=== PATIENT | male | born 1980 | race Caucasian/White ===

== ENCOUNTER 2025-04-10 06:19 | Inpatient (IN) ==
[2025-04-10 06:30] VITALS: BMI 25.0
[2025-04-10] MEDS: CATAPRES TAB 0.1 MG PO ONE (06:41)
--- NOTE | 2025-04-10 06:47 | EKG ---
Test Reason : right sided tingling Blood Pressure : */* mmHG Vent. Rate : 80 BPM Atrial Rate : 80 BPM P-R Int : 144 ms QRS Dur : 72 ms QT Int : 376 ms P-R-T Axes : 51 70 70 degrees QTc Int : 433 ms Normal sinus rhythm Normal ECG No previous ECGs available Confirmed by Per Ryan MD ([id number]) on 04/10/2025 7:03:09 AM Referred By: Confirmed By: Per Ryan MD
--- NOTE | 2025-04-10 06:48 | DR.EXTPAIN ---
HPI Time seen Time Seen by Provider: 04/10/25 06:47 PCP Primary Care Physician: [facility] Complaint/Symptoms Chief Complaint Doctor Comments: Patient stated about 10:00 last night he developed some right-sided face numbness and also little bit of left hand numbness. He denied any chest pain shortness of breath or anything like that he said he does have a history of borderline hypertension. When he got here his blood pressure was elevated to about 190/110 we gave him some clonidine 0.1 mg orally and we got him set to get a CT scan of his brain and some other labs are drawn. Chief Complaint:: Right side of face going numb, arms tingling Self Treatment fo Chief Complaint: Motrin about 1hour ago COVID-19 Coronavirus risk:travel/contact w/high risk person: No Has patient experienced Coronavirus symptoms: No Source History Provided: Patient Timing Onset of Chief Complaint: 04/09/25 PMH PMH Past Medical History: Yes Past Medical History Comment: borderline hypertension Past Surgical History: Yes Surgical History: Cholecystectomy Family History History of Family Medical Conditions: Yes Family Medical History: Hypertension Social History Does patient currently use any type of tobacco product: No Have you used tobacco products in the last 12 months: No Type of Tobacco Use: None Does any household member use tobacco: No Alcohol Use: DAILY Do you use any recreational Drugs:: No Lives With: Spouse Lives Where: Home Travel Risk Coronavirus risk:travel/contact w/high risk person: No Has patient experienced Coronavirus symptoms: No Infectious screening Have you traveled outside the country in the last 6 months?: No Isolation: Standard ROS Review of Systems Constitutional: Other (Right side of face numbness along with right arm and hand numbness. No pain patient is able to move right side extremities) Eyes: No Symptoms Reported ENTM: No Symptoms Reported Respiratoy: No Symptoms Reported Cardiovascular: No Symptoms Reported Gastrointestinal/Abdominal: No Symptoms Reported Genitourinary: No Symptoms Reported Neurological: Numbness (r face and r arm) Musculoskeletal: No Symptoms Reported Integumentary: No Symptoms Reported Hematologic/Lymphatic: No Symptoms Reported Endocrine: No Symptoms Reported Psychiatric: No Symptoms Reported PE Vital Signs Vitals: Vital Signs Temperature 98.6 F Pulse Rate 92 Pulse Rate 84 Pulse Rate 84 Pulse Rate 79 Pulse Rate 77 Pulse Rate 77 Pulse Rate 77 Pulse Rate 84 Pulse Rate 80 Pulse Rate 78 Pulse Rate 78 Respiratory Rate 13 Respiratory Rate 12 Respiratory Rate 12 Respiratory Rate 10 Respiratory Rate 13 Respiratory Rate 12 Respiratory Rate 20 Respiratory Rate 14 Respiratory Rate 22 Respiratory Rate 22 Blood Pressure 153/91 Blood Pressure 176/104 Blood Pressure 169/96 Blood Pressure 169/96 Blood Pressure 169/96 Blood Pressure 186/105 Blood Pressure 212/101 Blood Pressure 187/115 Blood Pressure 194/109 Blood Pressure 204/110 Blood Pressure 193/110 O2 Sat by Pulse Oximetry 98 O2 Sat by Pulse Oximetry 99 O2 Sat by Pulse Oximetry 99 O2 Sat by Pulse Oximetry 98 O2 Sat by Pulse Oximetry 98 O2 Sat by Pulse Oximetry 98 O2 Sat by Pulse Oximetry 98 O2 Sat by Pulse Oximetry 97 O2 Sat by Pulse Oximetry 98 O2 Sat by Pulse Oximetry 97 O2 Sat by Pulse Oximetry 96 General Limitations: No Limitations and Physical Limitation (none) General Appearance: In No Apparent Distress Head Head Exam: Normal Inspection, Atraumatic and Normocephalic Eyes Eye exam: Normal Appearance, PERRL and EOMI ENT ENT Exam: Other (r side of face swelling) Neck Neck Exam: Normal Inspection, Full ROM and Trachea Midline Chest Chest Inspection: Normal Inspection and Symmetric Chest Wall Rise Respiratory Respiratory Exam: Normal Lung Sounds Bilat Cardiovascular Cardiovascular Exam: Regular Rate and Normal Rhythm Upper Extremities Shoulder Exam: Normal Inspection Arm Exam: Normal Inspection Elbow Exam: Normal Inspection Forearm Exam: Normal Inspection Hand Exam: Normal Inspection Lower Extremities Hip/Pelvis Exam: Normal Inspection Upper Leg Exam: Normal Inspection Knee Exam: Normal Inspection Lower Leg Exam: Normal Inspection Ankle Exam: Normal Inspection Foot/Toe Exam: Normal Inspection Gait Exam: Observed and Normal Back Back Exam: Normal Inspection Neurological Neurological Exam: Alert, Oriented X3 and CN II-XII Intact Psychiatric Psychiatric Exam: Normal Affect Skin Skin Exam: Warm, Dry and Intact MDM Differential Diagnosis Differential Diagnosis: Other (cva,tia,bells palsy,dental abscess,malignant HTN,electrolyte abnormality.) COURSE Treatment Treatment: Patient remained stable during the ER evaluation. We did do clonidine 0.1 mg orally for blood pressure but it did not come down significantly so we gave him hydralazine 10 mg IV and his blood pressure came down from about 185/110 to 157/90. The patient had a workup done for maybe maybe CVA TIA he has CT scan of the brain that was negative for any acute bleed. The rest of his labs were normal EKG was normal chest x-ray showed no intra thoracic abnormality. Patient at the end of this treatment program was asked to assist right facial numbness is not any better improved he said no seem that got little bit worse and he also stated his right arm was also little bit more than he was able to move all the extremities and seemed to have equal strength on both sides I did look in his mild he did not appear to have any dental abscess or any other problem. This patient was told we were signout to the oncoming physician for further evaluation and treatment. We do not have capability of getting an MRI of his brain here today to further assess his numbness of his right side of face or right arm. ROR Labs Reviewed Laboratory Results Reviewed?: Yes 04/10/25 06:50 04/10/25 06:50 Laboratory: WBC 7.8 X10^3/uL (3.6-10.0) 04/10/25 06:50 RBC 5.49 X10^6/uL (4.7-6.0) 04/10/25 06:50 Hgb 16.2 g/dL (13.5-18.0) 04/10/25 06:50 Hct 45.7 % (42.0-54.0) 04/10/25 06:50 MCV 83.3 fL (80.0-100.0) 04/10/25 06:50 MCH 29.6 pg (27.0-34.0) 04/10/25 06:50 MCHC 35.5 g/dL (33.0-35.0) H 04/10/25 06:50 RDW 14.1 % (11.6-16.5) 04/10/25 06:50 Plt Count 267 X10^3/uL (150.0-450.0) 04/10/25 06:50 MPV 7.5 fL (7.4-11.0) 04/10/25 06:50 Neut % (Auto) 56.8 % (42.0-75.0) 04/10/25 06:50 Lymph % (Auto) 32.4 % (21.0-51.0) 04/10/25 06:50 [place] % (Auto) 6.6 % (0.0-13.0) 04/10/25 06:50 Eos % (Auto) 3.4 % (0.9-2.9) H 04/10/25 06:50 Baso % (Auto) 0.8 % (0.2-1.0) 04/10/25 06:50 Neut # (Auto) 4.4 x10^3/uL (2.2-4.8) 04/10/25 06:50 Lymph # (Auto) 2.5 X10^3/uL (1.3-2.9) 04/10/25 06:50 [place] # (Auto) 0.5 x10^3/uL (0.3-0.8) 04/10/25 06:50 Eos # (Auto) 0.3 x10^3/uL (0.0-0.2) H 04/10/25 06:50 Baso # (Auto) 0.1 X10^3/uL (0.0-0.1) 04/10/25 06:50 Absolute Nucleated RBC 0.1 /100WBC 04/10/25 06:50 PT 13.1 SECONDS (11.8-14.3) 04/10/25 06:50 INR Target Range - 04/10/25 06:50 INR 0.98 (0.8-1.3) 04/10/25 06:50 APTT 25.4 SECONDS (22.9-36.5) 04/10/25 06:50 PTT Comment - 04/10/25 06:50 Sodium 140 mmol/L (136-145) 04/10/25 06:50 Corrected Sodium TNP 04/10/25 06:50 Potassium 3.8 mmol/L (3.5-5.1) 04/10/25 06:50 Chloride 101 mmol/L (98-107) 04/10/25 06:50 Carbon Dioxide 29.5 mmol/L (21-32) 04/10/25 06:50 BUN 13 mg/dL (7-18) 04/10/25 06:50 Creatinine 1.17 mg/dL (0.70-1.30) 04/10/25 06:50 Est GFR (MDRD) Af Amer > 60 (>60) 04/10/25 06:50 Est GFR (MDRD) Non-Af > 60 (>60) 04/10/25 06:50 Glucose 104 mg/dL (65-99) H 04/10/25 06:50 Calcium 9.6 mg/dL (8.5-10.1) 04/10/25 06:50 Corrected Calcium TNP 04/10/25 06:50 Total Bilirubin 0.40 mg/dL (0.2-1.0) 04/10/25 06:50 AST 29 Units/L (15-37) 04/10/25 06:50 ALT 69 Units/L (12-78) 04/10/25 06:50 Alkaline Phosphatase 96 Units/L (46-116) 04/10/25 06:50 Creatine Kinase 175 Units/L (39-308) 04/10/25 06:50 Troponin I High Sens 7.2 ng/L (4.0-60.0) 04/10/25 06:50 Total Protein 8.1 g/dL (6.4-8.2) 04/10/25 06:50 Albumin 4.4 g/dL (3.4-5.0) 04/10/25 06:50 Globulin 3.7 g/dL (2.5-4.5) 04/10/25 06:50 Albumin/Globulin Ratio 1.2 Ratio (1.1-2.1) 04/10/25 06:50 Opioid Opioid Risk Tool Age (Abisai box if 16-45): No Total: 0 Total Score Risk Category: Low Risk Copyright: Luke CHONG predicting aberrant behaviors Discharge Plan Discharge Plan Patient Disposition: 01 HOME, SELF-CARE Condition: Stable Prescriptions: No Action [facility] Concerns: Post Hospitalization: new medications and changes needed to prevent readmission or further decline. Pt educated and given instructions on all concerns. Plan of Treatment: Continue with present treatment and follow up plan. Pt is to keep follow up appointment as instructed and take medications as ordered. Follow ups/Referrals Follow ups/Referrals: NFD,None [Primary Care Provider] - 3 days Instructions Stand Alone Forms: Find Help Web Site, Post Hospital Follow Up Care Print Language: PORTUGUESE
[2025-04-10 06:57] LABS: BASOPHILS # (AUTO) 0.1 X10^3/uL (0.0-0.1); BASOPHILS % (AUTO) 0.8 % (0.2-1.0); EOSINOPHILS # (AUTO) 0.3 x10^3/uL (0.0-0.2); EOSINOPHILS % (AUTO) 3.4 % (0.9-2.9); HEMATOCRIT 45.7 % (42.0-54.0); HEMOGLOBIN 16.2 g/dL (13.5-18.0); LYMPHOCYTES # (AUTO) 2.5 X10^3/uL (1.3-2.9); LYMPHOCYTES % (AUTO) 32.4 % (21.0-51.0); MEAN CORPUSCULAR HEMOGLOBIN 29.6 pg (27.0-34.0); MEAN CORPUSCULAR HGB CONC 35.5 g/dL (33.0-35.0); MEAN CORPUSCULAR VOLUME 83.3 fL (80.0-100.0); MEAN PLATELET VOLUME 7.5 fL (7.4-11.0); MONOCYTES # (AUTO) 0.5 x10^3/uL (0.3-0.8); MONOCYTES % (AUTO) 6.6 % (0.0-13.0); NEUTROPHILS # (AUTO) 4.4 x10^3/uL (2.2-4.8); NEUTROPHILS % (AUTO) 56.8 % (42.0-75.0); PLATELET COUNT 267 X10^3/uL (150.0-450.0); RED BLOOD COUNT 5.49 X10^6/uL (4.7-6.0); RED CELL DISTRIBUTION WIDTH 14.1 % (11.6-16.5); WHITE BLOOD COUNT 7.8 X10^3/uL (3.6-10.0)
[2025-04-10 07:04] LABS: INR 0.98 (0.8-1.3)
[2025-04-10 07:11] LABS: ALANINE AMINOTRANSFERASE 69 Units/L (12-78); ALBUMIN 4.4 g/dL (3.4-5.0); ALKALINE PHOSPHATASE 96 Units/L (46-116); ASPARTATE AMINO TRANSFERASE 29 Units/L (15-37); BLOOD UREA NITROGEN 13 mg/dL (7-18); CALCIUM 9.6 mg/dL (8.5-10.1); CARBON DIOXIDE 29.5 mmol/L (21-32); CHLORIDE 101 mmol/L (98-107); CREATINE KINASE 175 Units/L (39-308); CREATININE 1.17 mg/dL (0.70-1.30); GLUCOSE 104 mg/dL (65-99); POTASSIUM 3.8 mmol/L (3.5-5.1); SODIUM 140 mmol/L (136-145); TOTAL PROTEIN 8.1 g/dL (6.4-8.2); eGFR NON BLACK RACES > 60 (>60)
[2025-04-10] MEDS: APRESOLINE INJ 20 MG VIAL IVP ONE (07:15)
--- NOTE | 2025-04-10 07:20 | CT ---
EXAM: CT HEAD WITHOUT CONTRAST HISTORY: Right side of face going numb, arms tingling; COMPARISON: None. TECHNIQUE: Axial CT images were obtained through the brain without contrast. All CT scans at this facility use dose modulation, iterative reconstruction, and/or weight based dosing when appropriate to reduce radiation dose to as low as reasonably achievable. FINDINGS: No acute intracranial hemorrhage or extra-axial fluid collection. No mass effect or midline shift. Normal ventricles and CSF space configuration. No hydrocephalus. Parra-white differentiation is preserved. Intact calvarium. Visualized paranasal sinuses and mastoid air cells are well aerated. IMPRESSION: No acute intracranial findings. THIS IS AN ELECTRONICALLY VERIFIED FINAL REPORT 04/10/2025 7:14 AM - Electronically signed by Nabil Torres MD
--- NOTE | 2025-04-10 07:43 | RAD ---
EXAM: CHEST HISTORY: Right side of face going numb, arms tingling; COMPARISON: None. TECHNIQUE: Front al view of the chest was submitted for interpretation. FINDINGS: The cardiomediastinal silhouette is within normal limits. Lungs show no focal consolidation, pneumothorax, or pleural fluid. IMPRESSION: No acute cardiopulmonary process. THIS IS AN ELECTRONICALLY VERIFIED FINAL REPORT 04/10/2025 7:40 AM - Electronically signed by Nabil Putnam MD
--- NOTE | 2025-04-10 09:04 | TELESTROKE ---
[facility] Consult Date of Consult Date of Exam: 04/10/25 Time of Arrival to the ED: 09:04 Allergies Allergies Allergy/AdvReac Type Severity Reaction Status Date / Time No Known Allergies Allergy Verified 04/10/25 06:45 Vital Signs Vital Signs: Temp Pulse Resp BP Pulse Ox O2 Del Method 04/10/25 09:00 153/104 04/10/25 08:59 82 10 L 04/10/25 08:47 88 13 99 04/10/25 08:45 160/98 04/10/25 08:44 85 13 99 04/10/25 08:38 80 12 98 04/10/25 08:36 159/93 04/10/25 08:15 87 12 98 04/10/25 08:15 156/97 04/10/25 08:00 92 H 13 98 04/10/25 08:00 153/91 04/10/25 07:45 176/104 04/10/25 07:30 169/96 04/10/25 07:30 169/96 04/10/25 07:30 169/96 04/10/25 07:30 84 12 99 04/10/25 07:30 84 12 99 04/10/25 07:15 186/105 04/10/25 07:15 79 10 L 98 04/10/25 07:08 212/101 04/10/25 07:08 77 13 98 04/10/25 07:06 77 12 98 04/10/25 07:05 77 98 04/10/25 06:56 187/115 04/10/25 06:56 84 20 97 04/10/25 06:45 194/109 04/10/25 06:45 80 14 98 04/10/25 06:37 204/110 04/10/25 06:37 78 97 04/10/25 06:22 98.6 F 78 22 193/110 96 Room Air 04/10/25 06:21 22 History of Present Illness History of Present Illness: [facility] Tele[facility]urology Consult Services Stat Consult Patient Name:Harsha Christopher Date of :1980 Identification Number: Date of Service:04/10/2025 08:32:03 Diagnosis:I63.81 - 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 He is outside the time window for thrombolytics. No associated bulbar or focal motor deficits. This is in the context of uncontrolled htn with sbp over 190. Differential includes hypertensive urgency vs acute pure sensory stroke. Would recommend MRI brain to evaluate. Recommendations: Our recommendations are outlined below. Laboratory Studies :Lipid panelI orderedHemoglobin A1c Nursing Recommendations :IV Fluids, avoid dextrose containing fluids, Maintain euglycemia Neuro checks q4 hrs x 24 hrs and then per shift Head of bed 30 degrees Continue with Telemetry Consultations :Recommend Speech therapy if failed dysphagia screen Physical therapy/Occupational therapy - Metrics: Dispatch Time: 04/10/2025 08:32:03 Callback Response Time: 04/10/2025 08:32:34 Primary Provider Notified of Diagnostic Impression and Management Plan on: 04/10/2025 09:01:14 CT HEAD: I personally reviewed all the CT images that were available to me and it showed:no hemorrhage. Imagingreviewed Labsreviewed Chief Complaint: R sided sensory changes History of Present Illness:Patient is a 44 year old Male. Pt reports that last night pt started having numbness on the R side of the face. After waking up it was worse. It had travelled to the entire R side of the face and then to the R upper and lower extremities. He can't distinguish temp on the R side of the face either. This has never happened before. No associated focal motor or bulbar deficits. Pt does have HTN but it is currently being observed, he is not taking any daily medications. Pt's bp on arrival has been persistently above 190 systolic. Past Medical History: Hypertension Covid-19 There is no history of Diabetes Mellitus There is no history of Hyperlipidemia There is no history of Atrial Fibrillation There is no history of Coronary Artery Disease There is no history of Stroke There is no history of Seizures There is no history of Migraine Headaches There is no history of Dementia/MCI Medications: No Anticoagulant use No Antiplatelet use Reviewed EMR for current medications Allergies: NKDA Social History: Current Employee : drinks alcohol daily Smoking: No Alcohol Use: Yes Drug Use: No Family History: There is no family history of premature cerebrovascular disease pertinent to this consultation ROS : 14 Points Review of Systems was performed and was negative except mentioned in HPI. Past Surgical History: There Is No Surgical History Contributory To Todays Visit Examination: BP(193/110),Pulse(78),Blood Glucose(104) 1A: Level of Consciousness - Alert; keenly responsive+ 0 1B: Ask Month and Age - Both Questions Right+ 0 1C: Blink Eyes & Squeeze Hands - Performs Both Tasks+ 0 2: Test Horizontal Extraocular Movements - Normal+ 0 3: Test Visual Cuellar - No Visual Loss+ 0 4: Test Facial Palsy (Use Grimace if Obtunded) - Normal symmetry+ 0 5A: Test Left Arm Motor Drift - No Drift for 10 Seconds+ 0 5B: Test Right Arm Motor Drift - No Drift for 10 Seconds+ 0 6A: Test Left Leg Motor Drift - No Drift for 5 Seconds+ 0 6B: Test Right Leg Motor Drift - No Drift for 5 Seconds+ 0 7: Test Limb Ataxia (FNF/Heel-Riley) - No Ataxia+ 0 8: Test Sensation - Mild-Moderate Loss: Less Sharp/More Dull+ 1 9: Test Language/Aphasia - Normal; No aphasia+ 0 10: Test Dysarthria - Normal+ 0 11: Test Extinction/Inattention - No abnormality+ 0 NIHSS Score:1 Spoke with : This consult was conducted in real time using interactive audio and video technology. Patient was informed of the technology being used for this visit and agreed to proceed. Patient located in hospital and provider located at home/office setting. Patient is being evaluated for possible acute neurologic impairment and high probability of imminent or life - threatening deterioration.I spent total of 35 minutes providing care to this patient, including time for face to face visit via telemedicine, review of medical records, imaging studies and discussion of findings with providers, the patient and / or family. Dr Brooke Velasquezed [facility] For Inpatient follow-up with [facility] physician please call [facility] at . As we are not an outpatient service for any post hospital discharge needs please contact the hospital for assistance. If you have any questions for the [facility] physicians or need to reconsult for clinical or diagnostic changes please contact us via [facility] at . Medical Decision Making 04/10/25 06:50 04/10/25 06:50 Labs: Laboratory Results - last 24 hr 04/10/25 06:50 WBC 7.8 RBC 5.49 Hgb 16.2 Hct 45.7 MCV 83.3 MCH 29.6 MCHC 35.5 H RDW 14.1 Plt Count 267 MPV 7.5 Neut % (Auto) 56.8 Lymph % (Auto) 32.4 [place] % (Auto) 6.6 Eos % (Auto) 3.4 H Baso % (Auto) 0.8 Neut # (Auto) 4.4 Lymph # (Auto) 2.5 [place] # (Auto) 0.5 Eos # (Auto) 0.3 H Baso # (Auto) 0.1 Absolute Nucleated RBC 0.1 PT 13.1 INR Target Range - INR 0.98 APTT 25.4 PTT Comment - Sodium 140 Corrected Sodium TNP Potassium 3.8 Chloride 101 Carbon Dioxide 29.5 BUN 13 Creatinine 1.17 Est GFR (MDRD) Af Amer > 60 Est GFR (MDRD) Non-Af > 60 Glucose 104 H Calcium 9.6 Corrected Calcium TNP Total Bilirubin 0.40 AST 29 ALT 69 Alkaline Phosphatase 96 Creatine Kinase 175 Troponin I High Sens 7.2 Total Protein 8.1 Albumin 4.4 Globulin 3.7 Albumin/Globulin Ratio 1.2
[2025-04-10] MEDS ORDERED: ECOTRIN TAB 325 MG PO ONE (09:37)
[2025-04-10] MEDS: PLAVIX PO ONE (09:42)
[2025-04-10] MEDS: ASPIRIN PO SCH (09:43)
--- NOTE | 2025-04-10 09:55 | DR.EXTPAIN ---
HPI Time seen Time Seen by Provider: 04/10/25 06:47 PCP Primary Care Physician: [facility] Complaint/Symptoms Chief Complaint:: Right side of face going numb, arms tingling Self Treatment fo Chief Complaint: Motrin about 1hour ago COVID-19 Coronavirus risk:travel/contact w/high risk person: No Has patient experienced Coronavirus symptoms: No Source History Provided: Patient Timing Onset of Chief Complaint: 04/09/25 PMH PMH Past Medical History: Yes Past Medical History Comment: borderline hypertension Past Surgical History: Yes Surgical History: Cholecystectomy Family History History of Family Medical Conditions: Yes Family Medical History: Hypertension Social History Does patient currently use any type of tobacco product: No Have you used tobacco products in the last 12 months: No Type of Tobacco Use: None Does any household member use tobacco: No Alcohol Use: DAILY Do you use any recreational Drugs:: No Lives With: Spouse Lives Where: Home Travel Risk Coronavirus risk:travel/contact w/high risk person: No Has patient experienced Coronavirus symptoms: No Infectious screening Have you traveled outside the country in the last 6 months?: No Isolation: Standard PE Vital Signs Vitals: Vital Signs Temperature 98.6 F Pulse Rate 82 Pulse Rate 88 Pulse Rate 85 Pulse Rate 80 Pulse Rate 87 Pulse Rate 92 Pulse Rate 84 Pulse Rate 84 Pulse Rate 79 Pulse Rate 77 Pulse Rate 77 Pulse Rate 77 Pulse Rate 84 Pulse Rate 80 Pulse Rate 78 Pulse Rate 78 Respiratory Rate 10 Respiratory Rate 13 Respiratory Rate 13 Respiratory Rate 12 Respiratory Rate 12 Respiratory Rate 13 Respiratory Rate 12 Respiratory Rate 12 Respiratory Rate 10 Respiratory Rate 13 Respiratory Rate 12 Respiratory Rate 20 Respiratory Rate 14 Respiratory Rate 22 Respiratory Rate 22 Blood Pressure 153/104 Blood Pressure 160/98 Blood Pressure 159/93 Blood Pressure 156/97 Blood Pressure 153/91 Blood Pressure 176/104 Blood Pressure 169/96 Blood Pressure 169/96 Blood Pressure 169/96 Blood Pressure 186/105 Blood Pressure 212/101 Blood Pressure 187/115 Blood Pressure 194/109 Blood Pressure 204/110 Blood Pressure 193/110 O2 Sat by Pulse Oximetry 99 O2 Sat by Pulse Oximetry 99 O2 Sat by Pulse Oximetry 98 O2 Sat by Pulse Oximetry 98 O2 Sat by Pulse Oximetry 98 O2 Sat by Pulse Oximetry 99 O2 Sat by Pulse Oximetry 99 O2 Sat by Pulse Oximetry 98 O2 Sat by Pulse Oximetry 98 O2 Sat by Pulse Oximetry 98 O2 Sat by Pulse Oximetry 98 O2 Sat by Pulse Oximetry 97 O2 Sat by Pulse Oximetry 98 O2 Sat by Pulse Oximetry 97 O2 Sat by Pulse Oximetry 96 COURSE Treatment Treatment: Patient sign out to service by Dr Alatorre at 08:00am. Patient had [facility] consult. Patient is admitted to hospital for further management. Consultation Consultation Comments: Discussed patient with Dr. PEREIRA. She will admit patient. Education/Counseling Education/Counseling: Patient and Family ROR Labs Reviewed Laboratory Results Reviewed?: Yes 04/10/25 06:50 04/10/25 06:50 Laboratory: WBC 7.8 X10^3/uL (3.6-10.0) 04/10/25 06:50 RBC 5.49 X10^6/uL (4.7-6.0) 04/10/25 06:50 Hgb 16.2 g/dL (13.5-18.0) 04/10/25 06:50 Hct 45.7 % (42.0-54.0) 04/10/25 06:50 MCV 83.3 fL (80.0-100.0) 04/10/25 06:50 MCH 29.6 pg (27.0-34.0) 04/10/25 06:50 MCHC 35.5 g/dL (33.0-35.0) H 04/10/25 06:50 RDW 14.1 % (11.6-16.5) 04/10/25 06:50 Plt Count 267 X10^3/uL (150.0-450.0) 04/10/25 06:50 MPV 7.5 fL (7.4-11.0) 04/10/25 06:50 Neut % (Auto) 56.8 % (42.0-75.0) 04/10/25 06:50 Lymph % (Auto) 32.4 % (21.0-51.0) 04/10/25 06:50 [place] % (Auto) 6.6 % (0.0-13.0) 04/10/25 06:50 Eos % (Auto) 3.4 % (0.9-2.9) H 04/10/25 06:50 Baso % (Auto) 0.8 % (0.2-1.0) 04/10/25 06:50 Neut # (Auto) 4.4 x10^3/uL (2.2-4.8) 04/10/25 06:50 Lymph # (Auto) 2.5 X10^3/uL (1.3-2.9) 04/10/25 06:50 [place] # (Auto) 0.5 x10^3/uL (0.3-0.8) 04/10/25 06:50 Eos # (Auto) 0.3 x10^3/uL (0.0-0.2) H 04/10/25 06:50 Baso # (Auto) 0.1 X10^3/uL (0.0-0.1) 04/10/25 06:50 Absolute Nucleated RBC 0.1 /100WBC 04/10/25 06:50 PT 13.1 SECONDS (11.8-14.3) 04/10/25 06:50 INR Target Range - 04/10/25 06:50 INR 0.98 (0.8-1.3) 04/10/25 06:50 APTT 25.4 SECONDS (22.9-36.5) 04/10/25 06:50 PTT Comment - 04/10/25 06:50 Sodium 140 mmol/L (136-145) 04/10/25 06:50 Corrected Sodium TNP 04/10/25 06:50 Potassium 3.8 mmol/L (3.5-5.1) 04/10/25 06:50 Chloride 101 mmol/L (98-107) 04/10/25 06:50 Carbon Dioxide 29.5 mmol/L (21-32) 04/10/25 06:50 BUN 13 mg/dL (7-18) 04/10/25 06:50 Creatinine 1.17 mg/dL (0.70-1.30) 04/10/25 06:50 Est GFR (MDRD) Af Amer > 60 (>60) 04/10/25 06:50 Est GFR (MDRD) Non-Af > 60 (>60) 04/10/25 06:50 Glucose 104 mg/dL (65-99) H 04/10/25 06:50 Calcium 9.6 mg/dL (8.5-10.1) 04/10/25 06:50 Corrected Calcium TNP 04/10/25 06:50 Total Bilirubin 0.40 mg/dL (0.2-1.0) 04/10/25 06:50 AST 29 Units/L (15-37) 04/10/25 06:50 ALT 69 Units/L (12-78) 04/10/25 06:50 Alkaline Phosphatase 96 Units/L (46-116) 04/10/25 06:50 Creatine Kinase 175 Units/L (39-308) 04/10/25 06:50 Troponin I High Sens 7.2 ng/L (4.0-60.0) 04/10/25 06:50 Total Protein 8.1 g/dL (6.4-8.2) 04/10/25 06:50 Albumin 4.4 g/dL (3.4-5.0) 04/10/25 06:50 Globulin 3.7 g/dL (2.5-4.5) 04/10/25 06:50 Albumin/Globulin Ratio 1.2 Ratio (1.1-2.1) 04/10/25 06:50 XRAY XRAY Interpreted by: Radiologist Opioid Opioid Risk Tool Age (Abisai box if 16-45): No Total: 0 Total Score Risk Category: Low Risk Copyright: Luke CHONG predicting aberrant behaviors Discharge Plan Diagnosis Discharge Problem: Malignant essential hypertension, Right facial numbness, Right arm numbness Discharge Plan Patient Disposition: ADMITTED INPATIENT Condition: Stable Orders to Discharge Patient Discharge Orders: Transfer (Routine); Ordered 04/10/25 Ordered By: HEMANT WOO
[2025-04-10] MEDS: CATAPRES TAB 0.1 MG ONE (10:09)
[2025-04-10] MEDS: ASPIRIN ONE (10:09)
[2025-04-10] MEDS: APRESOLINE INJ 20 MG VIAL ONE (10:09)
[2025-04-10] MEDS: PLAVIX ONE (10:09)
[2025-04-10] MEDS ORDERED: ATIVAN INJ 2 MG VIAL IVP PRN (11:04)
[2025-04-10] MEDS: ZESTRIL TAB 10 MG PO SCH (11:10)
--- NOTE | 2025-04-10 11:13 | DR.H&P ---
H&P History & Physical for Day of: H&P Date: 04/10/25 Chief Complaint Chief Complaint: right sided numbness and tingling History of Present Illness History of Present Illness: Mr. Christopher is a 44-year-old male with a past medical history of hypertension, alcohol use presented with right-sided facial numbness and tingling along with right arm and right foot numbness. He states he noticed his symptoms last night which progressively got worse so he decided to come to the ER. Initial workup included a CT brain which was negative, labs were within range. Patient's blood pressure on admission was 190/110. He was given clonidine and hydralazine. Chest x-ray was normal. Patient did not have any motor deficit on the right side but was feeling numbness and tingling. Telemetry neuroconsult was done and they recommended observation along with MRI brain. Patient was given aspirin and Plavix. He was admitted for further evaluation. He does not take any medications for high blood pressure. He does not check his blood pressure. Denies having history of diabetes or CAD. He does drink at least 6 beers daily for years. Denies any slurred speech, trouble swallowing or any limitation of range of motion. Denies chest pain or shortness of breath. Labs/imaging reviewed: - WBC 7.8 hemoglobin 16 potassium 3.8 creatinine 1.17 - Chest x-ray no acute changes - CT brain: No acute abnormality Plan: Admit to [facility] with telemetry, neurochecks. Will add lisinopril 10 mg daily. Hydralazine IV as needed. Monitor blood pressure. Replace electrolytes as per protocol. Trend cardiac enzymes, check A1c and lipid panel. Continue aspirin and Plavix. MRI brain ordered. Will add Ativan as needed for agitation if needed. Monitor a.m. labs and imaging. Time spent for clinical assessment, reviewing labs and imaging, physical exam, documentation and decision making greater than 45 minutes. Past Surgical History Surgical History: Cholecystectomy Family History Family Medical History: Hypertension Social History Does patient currently use any type of tobacco product: No Have you used tobacco products in the last 12 months: No Type of Tobacco Use: None Does any household member use tobacco: No Alcohol Use: DAILY Medications Home Medications: Home Medications Medication Instructions Recorded Confirmed Type NK 04/10/25 04/10/25 History Allergies Allergies Allergy/AdvReac Type Severity Reaction Status Date / Time No Known Allergies Allergy Verified 04/10/25 06:45 Labs 04/10/25 06:50 04/10/25 06:50 Labs: Laboratory WBC 7.8 X10^3/uL (3.6-10.0) 04/10/25 06:50 RBC 5.49 X10^6/uL (4.7-6.0) 04/10/25 06:50 Hgb 16.2 g/dL (13.5-18.0) 04/10/25 06:50 Hct 45.7 % (42.0-54.0) 04/10/25 06:50 MCV 83.3 fL (80.0-100.0) 04/10/25 06:50 MCH 29.6 pg (27.0-34.0) 04/10/25 06:50 MCHC 35.5 g/dL (33.0-35.0) H 04/10/25 06:50 RDW 14.1 % (11.6-16.5) 04/10/25 06:50 Plt Count 267 X10^3/uL (150.0-450.0) 04/10/25 06:50 MPV 7.5 fL (7.4-11.0) 04/10/25 06:50 Neut % (Auto) 56.8 % (42.0-75.0) 04/10/25 06:50 Lymph % (Auto) 32.4 % (21.0-51.0) 04/10/25 06:50 [place] % (Auto) 6.6 % (0.0-13.0) 04/10/25 06:50 Eos % (Auto) 3.4 % (0.9-2.9) H 04/10/25 06:50 Baso % (Auto) 0.8 % (0.2-1.0) 04/10/25 06:50 Neut # (Auto) 4.4 x10^3/uL (2.2-4.8) 04/10/25 06:50 Lymph # (Auto) 2.5 X10^3/uL (1.3-2.9) 04/10/25 06:50 [place] # (Auto) 0.5 x10^3/uL (0.3-0.8) 04/10/25 06:50 Eos # (Auto) 0.3 x10^3/uL (0.0-0.2) H 04/10/25 06:50 Baso # (Auto) 0.1 X10^3/uL (0.0-0.1) 04/10/25 06:50 Absolute Nucleated RBC 0.1 /100WBC 04/10/25 06:50 PT 13.1 SECONDS (11.8-14.3) 04/10/25 06:50 INR Target Range - 04/10/25 06:50 INR 0.98 (0.8-1.3) 04/10/25 06:50 APTT 25.4 SECONDS (22.9-36.5) 04/10/25 06:50 PTT Comment - 04/10/25 06:50 Sodium 140 mmol/L (136-145) 04/10/25 06:50 Corrected Sodium TNP 04/10/25 06:50 Potassium 3.8 mmol/L (3.5-5.1) 04/10/25 06:50 Chloride 101 mmol/L (98-107) 04/10/25 06:50 Carbon Dioxide 29.5 mmol/L (21-32) 04/10/25 06:50 BUN 13 mg/dL (7-18) 04/10/25 06:50 Creatinine 1.17 mg/dL (0.70-1.30) 04/10/25 06:50 Est GFR (MDRD) Af Amer > 60 (>60) 04/10/25 06:50 Est GFR (MDRD) Non-Af > 60 (>60) 04/10/25 06:50 Glucose 104 mg/dL (65-99) H 04/10/25 06:50 Calcium 9.6 mg/dL (8.5-10.1) 04/10/25 06:50 Corrected Calcium TNP 04/10/25 06:50 Total Bilirubin 0.40 mg/dL (0.2-1.0) 04/10/25 06:50 AST 29 Units/L (15-37) 04/10/25 06:50 ALT 69 Units/L (12-78) 04/10/25 06:50 Alkaline Phosphatase 96 Units/L (46-116) 04/10/25 06:50 Creatine Kinase 175 Units/L (39-308) 04/10/25 06:50 Troponin I High Sens 7.2 ng/L (4.0-60.0) 04/10/25 06:50 Total Protein 8.1 g/dL (6.4-8.2) 04/10/25 06:50 Albumin 4.4 g/dL (3.4-5.0) 04/10/25 06:50 Globulin 3.7 g/dL (2.5-4.5) 04/10/25 06:50 Albumin/Globulin Ratio 1.2 Ratio (1.1-2.1) 04/10/25 06:50 Review of Systems Constitutional: No Symptoms Reported Eyes: No Symptoms Reported ENT: No Symptoms Reported Respiratory: No Symptoms Reported Cardiovascular: No Symptoms Reported Gastrointestinal: No Symptoms Reported Genitourinary: No Symptoms Reported Musculoskeletal: No Symptoms Reported Skin: No Symptoms Reported Neurological: Numbness Physical Exam Vital Signs: Vital Signs Temperature 97.9 F Temperature 98.6 F Pulse Rate [Left Radial] 79 Pulse Rate 77 Pulse Rate 77 Pulse Rate 78 Pulse Rate 82 Pulse Rate 82 Pulse Rate 88 Pulse Rate 85 Pulse Rate 80 Pulse Rate 87 Pulse Rate 92 Pulse Rate 84 Pulse Rate 84 Pulse Rate 79 Pulse Rate 77 Pulse Rate 77 Pulse Rate 77 Pulse Rate 84 Pulse Rate 80 Pulse Rate 78 Pulse Rate 78 Respiratory Rate 21 Respiratory Rate 17 Respiratory Rate 13 Respiratory Rate 12 Respiratory Rate 11 Respiratory Rate 10 Respiratory Rate 13 Respiratory Rate 13 Respiratory Rate 12 Respiratory Rate 12 Respiratory Rate 13 Respiratory Rate 12 Respiratory Rate 12 Respiratory Rate 10 Respiratory Rate 13 Respiratory Rate 12 Respiratory Rate 20 Respiratory Rate 14 Respiratory Rate 22 Respiratory Rate 22 Blood Pressure [Right Arm] 178/99 Blood Pressure 151/94 Blood Pressure 142/86 Blood Pressure 142/86 Blood Pressure 165/98 Blood Pressure 165/98 Blood Pressure 153/104 Blood Pressure 160/98 Blood Pressure 159/93 Blood Pressure 156/97 Blood Pressure 153/91 Blood Pressure 176/104 Blood Pressure 169/96 Blood Pressure 169/96 Blood Pressure 169/96 Blood Pressure 186/105 Blood Pressure 212/101 Blood Pressure 187/115 Blood Pressure 194/109 Blood Pressure 204/110 Blood Pressure 193/110 O2 Sat by Pulse Oximetry 98 O2 Sat by Pulse Oximetry 99 O2 Sat by Pulse Oximetry 99 O2 Sat by Pulse Oximetry 98 O2 Sat by Pulse Oximetry 98 O2 Sat by Pulse Oximetry 98 O2 Sat by Pulse Oximetry 99 O2 Sat by Pulse Oximetry 99 O2 Sat by Pulse Oximetry 98 O2 Sat by Pulse Oximetry 98 O2 Sat by Pulse Oximetry 98 O2 Sat by Pulse Oximetry 98 O2 Sat by Pulse Oximetry 97 O2 Sat by Pulse Oximetry 98 O2 Sat by Pulse Oximetry 97 O2 Sat by Pulse Oximetry 96 Oriented: Normal Eyes: Normal Nose: Normal Throat: Normal Respiratory: Clear Throughout Cardiovascular: Normal Auscultation: Bowel Sounds: Normal Palpation: Normal Tenderness: Normal Skin: Normal Musculoskeletal: Right, Arm, Foot and Sensory Deficit Psychiatric: Normal Mood Description: Calm Affect: Normal Speech Pattern: Clear and Appropriate Assessment/Plan (1) Right arm numbness: Status: Acute (2) Right facial numbness: Status: Acute (3) Malignant essential hypertension: Status: Acute (4) Alcohol use: Status: Chronic Review H&P Reviewed: Yes Patient was examined?: Yes
--- NOTE | 2025-04-10 13:12 | EKG ---
Test Reason : htn Blood Pressure : */* mmHG Vent. Rate : 68 BPM Atrial Rate : 68 BPM P-R Int : 150 ms QRS Dur : 68 ms QT Int : 402 ms P-R-T Axes : 37 68 83 degrees QTc Int : 427 ms Normal sinus rhythm Normal ECG When compared with ECG of 10-APR-2025 06:42, No significant change was found Confirmed by Per Ryan MD ([id number]) on 04/11/2025 6:41:01 AM Referred By: Confirmed By: Per Ryan MD
--- NOTE | 2025-04-10 18:07 | EKG ---
Test Reason : htn Blood Pressure : */* mmHG Vent. Rate : 60 BPM Atrial Rate : 60 BPM P-R Int : 140 ms QRS Dur : 78 ms QT Int : 424 ms P-R-T Axes : 34 68 73 degrees QTc Int : 424 ms Normal sinus rhythm Normal ECG When compared with ECG of 10-APR-2025 12:49, (Unconfirmed) No significant change was found Confirmed by Per Ryan MD ([id number]) on 04/11/2025 6:40:31 AM Referred By: Confirmed By: Per Ryan MD
[2025-04-10] MEDS: APRESOLINE INJ 20 MG VIAL IVP PRN (19:47)
--- NOTE | 2025-04-10 20:38 | CT ---
EXAM: CT HEAD WITHOUT IV CONTRAST HISTORY: Stroke protocol COMPARISON: None. TECHNIQUE: Axial images were acquired of the head without IV contrast. Coronal and sagittal images were provided. All images were reviewed in a variety of windows and levels. LIMITATIONS: Please note that CT has low sensitivity and accuracy for identifying acute infarction. In addition, there are portions of the brain that are affected by beam hardening artifact which further greatly limits identification of an acute infarct. RADIATION REDUCTION TECHNIQUE: Automated exposure control, Adjustment of the mA and/or kV according to patient size, or iterative reconstruction techniques were used. FINDINGS: There is no evidence of an acute intracranial bleed. There is no evidence of a mass or midline shift. There is no evidence of an extra-axial fluid collection. The morales-white matter differentiation is within normal limits. The visualized bones are unremarkable. The visualized sinuses are clear. The mastoid air cells are well-aerated. IMPRESSION: 1. THERE IS NO EVIDENCE OF AN ACUTE INTRACRANIAL BLEED THIS IS AN ELECTRONICALLY VERIFIED FINAL REPORT 04/10/2025 8:35 PM - Electronically signed by Fam Callejas MD
--- NOTE | 2025-04-10 20:39 | CT ---
EXAM: CT CERVICAL SPINE WITHOUT IV CONTRAST HISTORY: Stroke symptoms COMPARISON: None TECHNIQUE: Axial images were acquired through the cervical spine without IV contrast. sagittal and coronal reformatted images were provided. All images reviewed in a variety of windows and levels. RADIATION REDUCTION TECHNIQUE: Automated exposure control, Adjustment of the mA and/or kV according to patient size, or iterative reconstruction techniques were used. FINDINGS: Please note that lack of IV contrast limits evaluation of soft tissue structures and vascular detail. There is no evidence of an acute osseous fracture or subluxation. The skull base is intact. Mastoid air cells are well-aerated. The visualized portions of the paraspinous muscles are unremarkable. There are no abnormal areas of increased attenuation within the spinal canal to suggest an epidural hematoma. The visualized lung apices are clear. There are no obvious abnormal masses seen within the visualized soft tissues of the neck. IMPRESSION: 1. THERE IS NO EVIDENCE OF ACUTE FRACTURE OR SUBLUXATION THIS IS AN ELECTRONICALLY VERIFIED FINAL REPORT 04/10/2025 8:36 PM - Electronically signed by Fam Callejas MD
[2025-04-11 06:32] LABS: ALANINE AMINOTRANSFERASE 58 Units/L (12-78); ALKALINE PHOSPHATASE 83 Units/L (46-116); ASPARTATE AMINO TRANSFERASE 25 Units/L (15-37); BLOOD UREA NITROGEN 14 mg/dL (7-18); CALCIUM 9.2 mg/dL (8.5-10.1); CARBON DIOXIDE 26.8 mmol/L (21-32); CHLORIDE 105 mmol/L (98-107); CHOL/HDL RATIO 3.5 (0.0-5.0); CHOLESTEROL 244 mg/dL (0-200); CREATININE 1.06 mg/dL (0.70-1.30); GLUCOSE 99 mg/dL (65-99); HDL CHOLESTEROL 69 mg/dL (40-60); MAGNESIUM 2.1 mg/dL (2.0-2.9); POTASSIUM 4.1 mmol/L (3.5-5.1); SODIUM 141 mmol/L (136-145); TOTAL PROTEIN 7.4 g/dL (6.4-8.2); TRIGLYCERIDES 89 mg/dL (0-150); eGFR NON BLACK RACES > 60 (>60)
[2025-04-11 06:44] LABS: BASOPHILS % (AUTO) 0.5 % (0.2-1.0); EOSINOPHILS # (AUTO) 0.2 x10^3/uL (0.0-0.2); HEMATOCRIT 45.7 % (42.0-54.0); LYMPHOCYTES # (AUTO) 2.4 X10^3/uL (1.3-2.9); LYMPHOCYTES % (AUTO) 23.7 % (21.0-51.0); MEAN CORPUSCULAR HEMOGLOBIN 29.3 pg (27.0-34.0); MEAN CORPUSCULAR HGB CONC 35.1 g/dL (33.0-35.0); MEAN CORPUSCULAR VOLUME 83.5 fL (80.0-100.0); MEAN PLATELET VOLUME 7.9 fL (7.4-11.0); MONOCYTES # (AUTO) 0.7 x10^3/uL (0.3-0.8); MONOCYTES % (AUTO) 6.7 % (0.0-13.0); NEUTROPHILS # (AUTO) 6.7 x10^3/uL (2.2-4.8); NEUTROPHILS % (AUTO) 67.1 % (42.0-75.0); PLATELET COUNT 275 X10^3/uL (150.0-450.0); RED BLOOD COUNT 5.47 X10^6/uL (4.7-6.0); RED CELL DISTRIBUTION WIDTH 14.1 % (11.6-16.5)
[2025-04-11] MEDS: PLAVIX PO SCH (08:26)
[2025-04-11] MEDS ORDERED: ASPIRIN PO SCH (09:00)
--- NOTE | 2025-04-11 11:32 | PCM.PROG ---
Progress Note Progress Note for Day of Date of Exam: 04/11/25 Subjective Subjective: Patient seen at bedside, no acute events overnight. He continues to have right arm and leg numbness and tingling. He denies any motor deficits. He also reports numbness in his mouth on the right side when he is eating. His blood pressure has been better controlled. Denies nausea, vomiting or diarrhea. His cardiac enzymes were negative. His A1c was 5.1%. He does have elevated total cholesterol and LDL. CT neck without contrast was done yesterday which was supposed to be CTA neck. Labs/imaging reviewed: - WBC 10 hemoglobin 16 potassium 4.1 creatinine 1.06 - A1c 5.1% - Total cholesterol 244 LDL 157 Plan: Continue telemetry, neurochecks. Will order CTA neck today. Continue aspirin and Plavix. Will add Lipitor. Discussed risk factors with patient. MRI brain pending for tomorrow. Monitor blood pressure. Continue lisinopril. Replace electrolytes as per protocol. Monitor a.m. labs and imaging. Past Medical Family Social History Allergies: Allergies No Known Allergies Allergy (Verified 04/10/25 06:45) Vital Signs and I&O's Vital Signs: Vital Signs Temperature 97.8 F Temperature 97.8 F Pulse Rate [Left Radial] 84 Pulse Rate [Left Radial] 78 Respiratory Rate 20 Respiratory Rate 17 Blood Pressure [Right Arm] 138/86 Blood Pressure [Right Arm] 138/89 O2 Sat by Pulse Oximetry 97 O2 Sat by Pulse Oximetry 97 Intake and Output: Intake & Output 04/08/25 04/09/25 04/10/25 04/11/25 23:59 23:59 23:59 23:59 Intake Total 280 / 280 120 / 120 Balance 280 / 280 120 / 120 Physical Exam Oriented: Normal Eyes: Normal Nose: Normal Throat: Normal Cardiovascular: Normal Auscultation: Bowel Sounds: Normal Palpation: Normal Tenderness: Normal Skin: Normal Musculoskeletal: Right, Arm, Foot and Sensory Deficit Psychiatric: Normal Mood Description: Calm Affect: Normal Speech Pattern: Clear and Appropriate Laboratory and Diagnostics 04/11/25 06:34 04/11/25 05:34 Labs: Laboratory WBC 10.0 X10^3/uL (3.6-10.0) 04/11/25 06:34 RBC 5.47 X10^6/uL (4.7-6.0) 04/11/25 06:34 Hgb 16.0 g/dL (13.5-18.0) 04/11/25 06:34 Hct 45.7 % (42.0-54.0) 04/11/25 06:34 MCV 83.5 fL (80.0-100.0) 04/11/25 06:34 MCH 29.3 pg (27.0-34.0) 04/11/25 06:34 MCHC 35.1 g/dL (33.0-35.0) H 04/11/25 06:34 RDW 14.1 % (11.6-16.5) 04/11/25 06:34 Plt Count 275 X10^3/uL (150.0-450.0) 04/11/25 06:34 MPV 7.9 fL (7.4-11.0) 04/11/25 06:34 Neut % (Auto) 67.1 % (42.0-75.0) 04/11/25 06:34 Lymph % (Auto) 23.7 % (21.0-51.0) 04/11/25 06:34 [place] % (Auto) 6.7 % (0.0-13.0) 04/11/25 06:34 Eos % (Auto) 2.0 % (0.9-2.9) 04/11/25 06:34 Baso % (Auto) 0.5 % (0.2-1.0) 04/11/25 06:34 Neut # (Auto) 6.7 x10^3/uL (2.2-4.8) H 04/11/25 06:34 Lymph # (Auto) 2.4 X10^3/uL (1.3-2.9) 04/11/25 06:34 [place] # (Auto) 0.7 x10^3/uL (0.3-0.8) 04/11/25 06:34 Eos # (Auto) 0.2 x10^3/uL (0.0-0.2) 04/11/25 06:34 Baso # (Auto) 0.0 X10^3/uL (0.0-0.1) 04/11/25 06:34 Absolute Nucleated RBC 0.0 /100WBC 04/11/25 06:34 PT 13.3 SECONDS (11.8-14.3) 04/11/25 05:34 INR Target Range - 04/11/25 05:34 INR 1.00 (0.8-1.3) 04/11/25 05:34 APTT 26.6 SECONDS (22.9-36.5) 04/11/25 05:34 PTT Comment - 04/11/25 05:34 Sodium 141 mmol/L (136-145) 04/11/25 05:34 Corrected Sodium TNP 04/11/25 05:34 Potassium 4.1 mmol/L (3.5-5.1) 04/11/25 05:34 Chloride 105 mmol/L (98-107) 04/11/25 05:34 Carbon Dioxide 26.8 mmol/L (21-32) 04/11/25 05:34 BUN 14 mg/dL (7-18) 04/11/25 05:34 Creatinine 1.06 mg/dL (0.70-1.30) 04/11/25 05:34 Est GFR (MDRD) Af Amer > 60 (>60) 04/11/25 05:34 Est GFR (MDRD) Non-Af > 60 (>60) 04/11/25 05:34 Glucose 99 mg/dL (65-99) 04/11/25 05:34 Hemoglobin A1c 5.1 % 04/10/25 06:50 Calcium 9.2 mg/dL (8.5-10.1) 04/11/25 05:34 Corrected Calcium TNP 04/11/25 05:34 Magnesium 2.1 mg/dL (2.0-2.9) 04/11/25 05:34 Total Bilirubin 0.80 mg/dL (0.2-1.0) 04/11/25 05:34 AST 25 Units/L (15-37) 04/11/25 05:34 ALT 58 Units/L (12-78) 04/11/25 05:34 Alkaline Phosphatase 83 Units/L (46-116) 04/11/25 05:34 Creatine Kinase 146 Units/L (39-308) 04/10/25 18:53 Troponin I High Sens 7.1 ng/L (4.0-60.0) 04/10/25 18:53 Total Protein 7.4 g/dL (6.4-8.2) 04/11/25 05:34 Albumin 4.0 g/dL (3.4-5.0) 04/11/25 05:34 Globulin 3.4 g/dL (2.5-4.5) 04/11/25 05:34 Albumin/Globulin Ratio 1.2 Ratio (1.1-2.1) 04/11/25 05:34 Triglycerides 89 mg/dL (0-150) 04/11/25 05:34 Cholesterol 244 mg/dL (0-200) H 04/11/25 05:34 LDL Cholesterol, Calc 157 mg/dL (0-100) H 04/11/25 05:34 HDL Cholesterol 69 mg/dL (40-60) H 04/11/25 05:34 Cholesterol/HDL Ratio 3.5 (0.0-5.0) 04/11/25 05:34 Plan (1) Right arm numbness: Status: Acute (2) Right facial numbness: Status: Acute (3) Malignant essential hypertension: Status: Acute (4) Alcohol use: Status: Chronic (5) HLD (hyperlipidemia): Status: Chronic Qualifiers: Hyperlipidemia type: mixed hyperlipidemia Qualified Code(s): E78.2 - Mixed hyperlipidemia
--- NOTE | 2025-04-11 12:57 | CT ---
EXAMINATION: CAROTID CTA HISTORY: RT side weakness/numbness; . COMPARISON STUDY: CT brain 04/10/2025 TECHNIQUE: CT angiogram of the neck was performed without and with IV administration of IV contrast. Image post processing was performed on a workstation with generation of thick slab maximum intensity projections and volume rendering. FINDINGS: The bilateral common, internal and external carotid arteries are patent and show no hemodynamically significant stenosis. Left vertebral artery is dominant. There is some attenuation of the right vertebral artery which can be seen with congenital change, vasculitis, atherosclerosis.. The soft tissues of the neck demonstrate no significant mucosal thickening in the nasopharynx, oropharynx, hypopharynx or larynx. There is no cervical lymphadenopathy. Thyroid gland is unremarkable. Tongue appears normal. Salivary glands appear normal. The sinuses are clear. There are degenerative changes in the cervical spine. The lung apices are clear. IMPRESSION: No hemodynamically significant stenosis in the carotid or vertebral arteries in the neck. Attenuation of the right vertebral artery which may be congenital, atherosclerotic or vasculitis. If symptoms persist consider MRI for further assessment The above CT scan was done with automated exposure control and the mA and kV was adjusted to obtain quality images according to patient size. Stenoses were measured using the NASCET method. THIS IS AN ELECTRONICALLY VERIFIED FINAL REPORT 04/11/2025 12:54 PM - Electronically signed by Cole Perez MD
[2025-04-11] MEDS ORDERED: ATIVAN TAB 1 MG ONE (16:36)
[2025-04-11] MEDS: ATIVAN TAB 1 MG PO PRN (16:39)
--- NOTE | 2025-04-11 18:05 | TELESTROKE ---
Tele[facility]Specialist Consult Date of Consult Date of Exam: 04/11/25 Time of Arrival to the ED: 18:04 Allergies Allergies Allergy/AdvReac Type Severity Reaction Status Date / Time No Known Allergies Allergy Verified 04/10/25 06:45 Vital Signs Vital Signs: Temp Pulse Pulse Resp BP BP Pulse Ox 04/11/25 15:40 160/79 04/11/25 15:30 182/101 04/11/25 15:30 98.4 F 83 20 173/105 97 04/11/25 12:00 97.6 F 74 20 153/85 97 04/11/25 09:00 04/11/25 07:47 97.8 F 84 20 138/86 97 04/11/25 07:00 04/11/25 03:53 97.8 F 78 17 138/89 97 04/10/25 23:43 97.6 F 81 17 131/81 97 04/10/25 20:55 149/88 04/10/25 20:00 98.4 F 74 18 142/104 97 04/10/25 19:00 04/10/25 17:05 04/10/25 16:00 97.6 F 69 19 142/90 98 04/10/25 12:00 97.9 F 79 20 162/89 98 04/10/25 10:10 97.9 F 79 21 178/99 98 04/10/25 09:45 151/94 04/10/25 09:45 77 17 04/10/25 09:37 04/10/25 09:30 77 13 04/10/25 09:30 142/86 04/10/25 09:30 142/86 04/10/25 09:15 78 12 04/10/25 09:15 165/98 04/10/25 09:15 165/98 04/10/25 09:00 82 11 L 04/10/25 09:00 153/104 04/10/25 08:59 82 10 L 04/10/25 08:47 88 13 99 04/10/25 08:45 160/98 04/10/25 08:44 85 13 99 04/10/25 08:38 80 12 98 04/10/25 08:36 159/93 04/10/25 08:15 87 12 98 04/10/25 08:15 156/97 04/10/25 08:00 92 H 13 98 04/10/25 08:00 153/91 04/10/25 07:45 176/104 04/10/25 07:30 169/96 04/10/25 07:30 169/96 04/10/25 07:30 169/96 04/10/25 07:30 84 12 99 04/10/25 07:30 84 12 99 04/10/25 07:15 186/105 04/10/25 07:15 79 10 L 98 04/10/25 07:08 212/101 04/10/25 07:08 77 13 98 04/10/25 07:06 77 12 98 04/10/25 07:05 77 98 04/10/25 06:56 187/115 04/10/25 06:56 84 20 97 04/10/25 06:45 194/109 04/10/25 06:45 80 14 98 04/10/25 06:37 204/110 04/10/25 06:37 78 97 04/10/25 06:22 98.6 F 78 22 193/110 96 04/10/25 06:21 22 O2 Del Method 04/11/25 15:40 04/11/25 15:30 04/11/25 15:30 Room Air 04/11/25 12:00 Room Air 04/11/25 09:00 Room Air 04/11/25 07:47 Room Air 04/11/25 07:00 Room Air 04/11/25 03:53 Room Air 04/10/25 23:43 Room Air 04/10/25 20:55 04/10/25 20:00 Room Air 04/10/25 19:00 Room Air 04/10/25 17:05 Room Air 04/10/25 16:00 Room Air 04/10/25 12:00 Room Air 04/10/25 10:10 Room Air 04/10/25 09:45 04/10/25 09:45 04/10/25 09:37 Room Air 04/10/25 09:30 04/10/25 09:30 04/10/25 09:30 04/10/25 09:15 04/10/25 09:15 04/10/25 09:15 04/10/25 09:00 04/10/25 09:00 04/10/25 08:59 04/10/25 08:47 04/10/25 08:45 04/10/25 08:44 04/10/25 08:38 04/10/25 08:36 04/10/25 08:15 04/10/25 08:15 04/10/25 08:00 04/10/25 08:00 04/10/25 07:45 04/10/25 07:30 04/10/25 07:30 04/10/25 07:30 04/10/25 07:30 04/10/25 07:30 04/10/25 07:15 04/10/25 07:15 04/10/25 07:08 04/10/25 07:08 04/10/25 07:06 04/10/25 07:05 04/10/25 06:56 04/10/25 06:56 04/10/25 06:45 04/10/25 06:45 04/10/25 06:37 04/10/25 06:37 04/10/25 06:22 Room Air 04/10/25 06:21 History of Present Illness History of Present Illness: [facility] TeleNeurology Consult Services Stat Consult Patient Name:Harsha Christopher Date of :1980 Identification Number: Date of Service:04/11/2025 17:02:08 Diagnosis:I63.89 - Cerebrovascular accident (CVA) due to other mechanism ([facility]) Impression 44-year-old male history of GERD, alcohol use who I am seeing as a stat consult for worsening right arm and leg numbness and weakness. Patient being seen for right face arm leg numbness and weakness starting 04/09. Since that time numbness progressed from right hand up to right arm and right foot up to right leg. MRI brain pending for tomorrow a.m. Neuroexam showing continued right face arm and leg numbness right arm heaviness, right leg heaviness. No significant drift. At this time, would suggest repeat CT head noncontrast to evaluate for evolving infarct or acute process as well as CTA head with contrast to evaluate intracranial vasculature to complete workup of right-sided numbness.. CTA neck done yesterday showing no hemodynamically significant stenosis in the carotid or vertebral arteries. Patient feels symptoms of numbness are progressing along R arm adn R leg. . This occurred mostly after he received benzodiazepine for agitation and alcohol withdrawal. I suspect this may have caused worsening of his symptoms but should continue to monitor. If he has lacunar infarct, it could be completing as well. Hospitalist will try to expedite MRI for tonight instead of tomorrow a.m. If symptoms continue to progress, would suggest transfer to facility with urgent MR neurology consult. Would lower asa dose to 81 mg and continue plavix 75 mg daily from Neurological perspective. . Recommendations: Our recommendations are outlined below. Diagnostic Studies :-CT head non con , CTA head with con tonight -MRI brain non con , will try to expedite for tonight otherwise tomrow AM - If further progression, transfer to facility with urgent MRI - ASA 81 mg , clopidogrel 75 mg daily Nursing Recommendations :IV Fluids, avoid dextrose containing fluids, Maintain euglycemia Neuro checks q4 hrs Continue with Telemetry - Metrics: Dispatch Time: 04/11/2025 17:02:08 Callback Response Time: 04/11/2025 17:07:48 Primary Provider Notified of Diagnostic Impression and Management Plan on: 04/11/2025 17:50:00 Chief Complaint: R side weakness History of Present Illness:Patient is a 44 year old Male. 44-year-old male history of GERD who I am seeing as a stat consult for worsening right arm and leg numbness and weakness. Patient states that starting on 6 6 he had sudden onset of right sided sensory changes involving the face since 6 6 evening. He was out of the window for thrombolytics. His blood pressure was elevated at 190. Neurology recommended MRI brain. This is still pending. Since that time patient has noticed worsening right arm and leg weakness numbness. He denies any speech difficulty. The right hand numbness has progressed up to his right arm and the right foot numbness has progressed up to his right leg. He denies any symptoms on his left side. CT head was negative for acute process. Past Medical History: Stroke Medications: No Anticoagulant use Antiplatelet use:Yesasa plavix Reviewed EMR for current medications Allergies: Reviewed Social History: Alcohol Use: Yes Family History: There is no family history of premature cerebrovascular disease pertinent to this consultation ROS : 14 Points Review of Systems was performed and was negative except mentioned in HPI. Past Surgical History: There Is No Surgical History Contributory To Todays Visit Examination: BP(160/79),Pulse(73), 1A: Level of Consciousness - Alert; keenly responsive+ 0 1B: Ask Month and Age - Both Questions Right+ 0 1C: Blink Eyes & Squeeze Hands - Performs Both Tasks+ 0 2: Test Horizontal Extraocular Movements - Normal+ 0 3: Test Visual Cuellar - No Visual Loss+ 0 4: Test Facial Palsy (Use Grimace if Obtunded) - Normal symmetry+ 0 5A: Test Left Arm Motor Drift - No Drift for 10 Seconds+ 0 5B: Test Right Arm Motor Drift - No Drift for 10 Seconds+ 0 6A: Test Left Leg Motor Drift - No Drift for 5 Seconds+ 0 6B: Test Right Leg Motor Drift - No Drift for 5 Seconds+ 0 7: Test Limb Ataxia (FNF/Heel-Riley) - No Ataxia+ 0 8: Test Sensation - Mild-Modera/te Loss: Less Sharp/More Dull+ 1 9: Test Language/Aphasia - Normal; No aphasia+ 0 10: Test Dysarthria - Normal+ 0 11: Test Extinction/Inattention - No abnormality+ 0 NIHSS Score:1 Spoke with :DR Yu This consult was conducted in real time using interactive audio and video technology. Patient was informed of the technology being used for this visit and agreed to proceed. Patient located in hospital and provider located at home/office setting. Patient is being evaluated for possible acute neurologic impairment and high probability of imminent or life - threatening deterioration.I spent total of 35 minutes providing care to this patient, including time for face to face visit via telemedicine, review of medical records, imaging studies and discussion of findings with providers, the patient and / or family. Dr Abisai Fallon [facility] For Inpatient follow-up with [facility] physician please call [facility] at . As we are not an outpatient service for any post hospital discharge needs please contact the hospital for assistance. If you have any questions for the [facility] physicians or need to reconsult for clinical or diagnostic changes please contact us via [facility] at . Medical Decision Making 04/11/25 06:34 04/11/25 05:34 Labs: Laboratory Results - last 24 hr 04/10/25 04/11/25 04/11/25 18:53 05:34 06:34 WBC 10.0 RBC 5.47 Hgb 16.0 Hct 45.7 MCV 83.5 MCH 29.3 MCHC 35.1 H RDW 14.1 Plt Count 275 MPV 7.9 Neut % (Auto) 67.1 Lymph % (Auto) 23.7 [place] % (Auto) 6.7 Eos % (Auto) 2.0 Baso % (Auto) 0.5 Neut # (Auto) 6.7 H Lymph # (Auto) 2.4 [place] # (Auto) 0.7 Eos # (Auto) 0.2 Baso # (Auto) 0.0 Absolute Nucleated RBC 0.0 PT 13.3 INR Target Range - INR 1.00 APTT 26.6 PTT Comment - Sodium 141 Corrected Sodium TNP Potassium 4.1 Chloride 105 Carbon Dioxide 26.8 BUN 14 Creatinine 1.06 Est GFR (MDRD) Af Amer > 60 Est GFR (MDRD) Non-Af > 60 Glucose 99 Calcium 9.2 Corrected Calcium TNP Magnesium 2.1 Total Bilirubin 0.80 AST 25 ALT 58 Alkaline Phosphatase 83 Creatine Kinase 146 Troponin I High Sens 7.1 Total Protein 7.4 Albumin 4.0 Globulin 3.4 Albumin/Globulin Ratio 1.2 Triglycerides 89 Cholesterol 244 H LDL Cholesterol, Calc 157 H HDL Cholesterol 69 H Cholesterol/HDL Ratio 3.5
[2025-04-11] MEDS ORDERED: OMNIPAQUE 350 mg/mL 100 mL BTL 100 ML ONE (18:07)
--- NOTE | 2025-04-11 18:09 | TELESTROKE ---
Tele-Specialist Consult Date of Consult Date of Exam: 04/11/25 Time of Arrival to the ED: 18:04 Allergies Allergies Allergy/AdvReac Type Severity Reaction Status Date / Time No Known Allergies Allergy Verified 04/10/25 06:45 Vital Signs Vital Signs: Temp Pulse Pulse Resp BP BP Pulse Ox 04/11/25 15:40 160/79 04/11/25 15:30 182/101 04/11/25 15:30 98.4 F 83 20 173/105 97 04/11/25 12:00 97.6 F 74 20 153/85 97 04/11/25 09:00 04/11/25 07:47 97.8 F 84 20 138/86 97 04/11/25 07:00 04/11/25 03:53 97.8 F 78 17 138/89 97 04/10/25 23:43 97.6 F 81 17 131/81 97 04/10/25 20:55 149/88 04/10/25 20:00 98.4 F 74 18 142/104 97 04/10/25 19:00 04/10/25 17:05 04/10/25 16:00 97.6 F 69 19 142/90 98 04/10/25 12:00 97.9 F 79 20 162/89 98 04/10/25 10:10 97.9 F 79 21 178/99 98 04/10/25 09:45 151/94 04/10/25 09:45 77 17 04/10/25 09:37 04/10/25 09:30 77 13 04/10/25 09:30 142/86 04/10/25 09:30 142/86 04/10/25 09:15 78 12 04/10/25 09:15 165/98 04/10/25 09:15 165/98 04/10/25 09:00 82 11 L 04/10/25 09:00 153/104 04/10/25 08:59 82 10 L 04/10/25 08:47 88 13 99 04/10/25 08:45 160/98 04/10/25 08:44 85 13 99 04/10/25 08:38 80 12 98 04/10/25 08:36 159/93 04/10/25 08:15 87 12 98 04/10/25 08:15 156/97 04/10/25 08:00 92 H 13 98 04/10/25 08:00 153/91 04/10/25 07:45 176/104 04/10/25 07:30 169/96 04/10/25 07:30 169/96 04/10/25 07:30 169/96 04/10/25 07:30 84 12 99 04/10/25 07:30 84 12 99 04/10/25 07:15 186/105 04/10/25 07:15 79 10 L 98 04/10/25 07:08 212/101 04/10/25 07:08 77 13 98 04/10/25 07:06 77 12 98 04/10/25 07:05 77 98 04/10/25 06:56 187/115 04/10/25 06:56 84 20 97 04/10/25 06:45 194/109 04/10/25 06:45 80 14 98 04/10/25 06:37 204/110 04/10/25 06:37 78 97 04/10/25 06:22 98.6 F 78 22 193/110 96 04/10/25 06:21 22 O2 Del Method 04/11/25 15:40 04/11/25 15:30 04/11/25 15:30 Room Air 04/11/25 12:00 Room Air 04/11/25 09:00 Room Air 04/11/25 07:47 Room Air 04/11/25 07:00 Room Air 04/11/25 03:53 Room Air 04/10/25 23:43 Room Air 04/10/25 20:55 04/10/25 20:00 Room Air 04/10/25 19:00 Room Air 04/10/25 17:05 Room Air 04/10/25 16:00 Room Air 04/10/25 12:00 Room Air 04/10/25 10:10 Room Air 04/10/25 09:45 04/10/25 09:45 04/10/25 09:37 Room Air 04/10/25 09:30 04/10/25 09:30 04/10/25 09:30 04/10/25 09:15 04/10/25 09:15 04/10/25 09:15 04/10/25 09:00 04/10/25 09:00 04/10/25 08:59 04/10/25 08:47 04/10/25 08:45 04/10/25 08:44 04/10/25 08:38 04/10/25 08:36 04/10/25 08:15 04/10/25 08:15 04/10/25 08:00 04/10/25 08:00 04/10/25 07:45 04/10/25 07:30 04/10/25 07:30 04/10/25 07:30 04/10/25 07:30 04/10/25 07:30 04/10/25 07:15 04/10/25 07:15 04/10/25 07:08 04/10/25 07:08 04/10/25 07:06 04/10/25 07:05 04/10/25 06:56 04/10/25 06:56 04/10/25 06:45 04/10/25 06:45 04/10/25 06:37 04/10/25 06:37 04/10/25 06:22 Room Air 04/10/25 06:21 History of Present Illness History of Present Illness: [facility] TeleNeurology Consult Services Stat Consult Patient Name:Harsha Christopher Date of :1980 Identification Number: Date of Service:04/11/2025 17:02:08 Diagnosis:I63.89 - Cerebrovascular accident (CVA) due to other mechanism ([facility]) Impression 44-year-old male history of GERD, alcohol use who I am seeing as a stat consult for worsening right arm and leg numbness and weakness. Patient being seen for right face arm leg numbness and weakness starting 04/09. Since that time numbness progressed from right hand up to right arm and right foot up to right leg. MRI brain pending for tomorrow a.m. Neuroexam showing continued right face arm and leg numbness right arm heaviness, right leg heaviness. No significant drift. At this time, would suggest repeat CT head noncontrast to evaluate for evolving infarct or acute process as well as CTA head with contrast to evaluate intracranial vasculature to complete workup of right-sided numbness.. CTA neck done yesterday showing no hemodynamically significant stenosis in the carotid or vertebral arteries. Patient feels symptoms of numbness are progressing. This occurred mostly after he received benzodiazepine for agitation and alcohol withdrawal. I suspect this may have caused worsening of his symptoms but should continue to monitor. If this is lacunar infarct, it may be completing as well. Hospitalist will try to expedite MRI for tonight instead of tomorrow a.m. If symptoms continue to progress, would suggest transfer to facility with urgent MR neurology consult. Can lower asa to 81 mg daily and continue clopidogrel 75 mg daily from Neuro perspective. Recommendations: Our recommendations are outlined below. Diagnostic Studies :-CT head non con , CTA head with con tonight -MRI brain non con , will try to expedite for tonight otherwise tomrow AM - If progressing symptoms, transfer to facility with urgent MRI - ASA 81 mg , clopidogrel 75 mg daily Nursing Recommendations :IV Fluids, avoid dextrose containing fluids, Maintain euglycemia Neuro checks q4 hrs Continue with Telemetry - Metrics: Dispatch Time: 04/11/2025 17:02:08 Callback Response Time: 04/11/2025 17:07:48 Primary Provider Notified of Diagnostic Impression and Management Plan on: 04/11/2025 17:50:00 Chief Complaint: R side weakness History of Present Illness:Patient is a 44 year old Male. 44-year-old male history of GERD who I am seeing as a stat consult for worsening right arm and leg numbness and weakness. Patient states that starting on 6 6 he had sudden onset of right sided sensory changes involving the face since 6 6 evening. He was out of the window for thrombolytics. His blood pressure was elevated at 190. Neurology recommended MRI brain. This is still pending. Since that time patient has noticed worsening right arm and leg weakness numbness. He denies any speech difficulty. The right hand numbness has progressed up to his right arm and the right foot numbness has progressed up to his right leg. He denies any symptoms on his left side. CT head was negative for acute process. Past Medical History: Stroke Medications: No Anticoagulant use Antiplatelet use:Yesasa plavix Reviewed EMR for current medications Allergies: Reviewed Social History: Alcohol Use: Yes Family History: There is no family history of premature cerebrovascular disease pertinent to this consultation ROS : 14 Points Review of Systems was performed and was negative except mentioned in HPI. Past Surgical History: There Is No Surgical History Contributory To Todays Visit Examination: BP(160/79),Pulse(73), 1A: Level of Consciousness - Alert; keenly responsive+ 0 1B: Ask Month and Age - Both Questions Right+ 0 1C: Blink Eyes & Squeeze Hands - Performs Both Tasks+ 0 2: Test Horizontal Extraocular Movements - Normal+ 0 3: Test Visual Cuellar - No Visual Loss+ 0 4: Test Facial Palsy (Use Grimace if Obtunded) - Normal symmetry+ 0 5A: Test Left Arm Motor Drift - No Drift for 10 Seconds+ 0 5B: Test Right Arm Motor Drift - No Drift for 10 Seconds+ 0 6A: Test Left Leg Motor Drift - No Drift for 5 Seconds+ 0 6B: Test Right Leg Motor Drift - No Drift for 5 Seconds+ 0 7: Test Limb Ataxia (FNF/Heel-Riley) - No Ataxia+ 0 8: Test Sensation - Mild-Moderate Loss: Less Sharp/More Dull+ 1 9: Test Language/Aphasia - Normal; No aphasia+ 0 10: Test Dysarthria - Normal+ 0 11: Test Extinction/Inattention - No abnormality+ 0 NIHSS Score:1 Spoke with :DR Yu This consult was conducted in real time using interactive audio and video technology. Patient was informed of the technology being used for this visit and agreed to proceed. Patient located in hospital and provider located at home/office setting. Patient is being evaluated for possible acute neurologic impairment and high probability of imminent or life - threatening deterioration.I spent total of 35 minutes providing care to this patient, including time for face to face visit via telemedicine, review of medical records, imaging studies and discussion of findings with providers, the patient and / or family. Dr Abisai Fallon [facility] For Inpatient follow-up with [facility] physician please call [facility] at . As we are not an outpatient service for any post hospital discharge needs please contact the hospital for assistance. If you have any questions for the [facility] physicians or need to reconsult for clinical or diagnostic changes please contact us via [facility] at . Medical Decision Making 04/11/25 06:34 04/11/25 05:34 Labs: Laboratory Results - last 24 hr 04/10/25 04/11/25 04/11/25 18:53 05:34 06:34 WBC 10.0 RBC 5.47 Hgb 16.0 Hct 45.7 MCV 83.5 MCH 29.3 MCHC 35.1 H RDW 14.1 Plt Count 275 MPV 7.9 Neut % (Auto) 67.1 Lymph % (Auto) 23.7 [place] % (Auto) 6.7 Eos % (Auto) 2.0 Baso % (Auto) 0.5 Neut # (Auto) 6.7 H Lymph # (Auto) 2.4 [place] # (Auto) 0.7 Eos # (Auto) 0.2 Baso # (Auto) 0.0 Absolute Nucleated RBC 0.0 PT 13.3 INR Target Range - INR 1.00 APTT 26.6 PTT Comment - Sodium 141 Corrected Sodium TNP Potassium 4.1 Chloride 105 Carbon Dioxide 26.8 BUN 14 Creatinine 1.06 Est GFR (MDRD) Af Amer > 60 Est GFR (MDRD) Non-Af > 60 Glucose 99 Calcium 9.2 Corrected Calcium TNP Magnesium 2.1 Total Bilirubin 0.80 AST 25 ALT 58 Alkaline Phosphatase 83 Creatine Kinase 146 Troponin I High Sens 7.1 Total Protein 7.4 Albumin 4.0 Globulin 3.4 Albumin/Globulin Ratio 1.2 Triglycerides 89 Cholesterol 244 H LDL Cholesterol, Calc 157 H HDL Cholesterol 69 H Cholesterol/HDL Ratio 3.5
--- NOTE | 2025-04-11 18:46 | CT ---
EXAMINATION: BRAIN W/O CON HISTORY: RT side weakness/numbness ; . COMPARISON STUDY: CT brain 04/10/2025 TECHNIQUE: Multiple axial images were obtained from the base of the skull through the vertex without contrast administration. Reformatted images were obtained as well. The above CT scan was done with automated exposure control and the mA and kV was adjusted to obtain quality images according to patient size. FINDINGS: There is no acute intracranial hemorrhage, midline shift or edema present. Chin-white matter differentiation is maintained. Ventricles and sulci are unremarkable. No intra-axial or extra-axial collections are noted. . Sinuses are clear. Mastoid air cells are clear. No depressed skull fracture is present.. IMPRESSION: NO ACUTE INTRACRANIAL PROCESS No change compared with previous. If symptoms persist recommend MRI for further assessment. THIS IS AN ELECTRONICALLY VERIFIED FINAL REPORT 04/11/2025 6:42 PM - Electronically signed by Cole Perez MD
--- NOTE | 2025-04-11 19:22 | CT ---
EXAMINATION: BRAIN CTA HISTORY: Stroke like symptoms; . COMPARISON STUDY: CT brain 04/11/2025 TECHNIQUE: CT angiogram of the head was performed without and with IV administration of IV contrast. Image post processing was performed on a workstation with generation of thick slab maximum intensity projections and volume rendering. FINDINGS: CTA head: Ventricles and sulci are unremarkable.. There is no hemorrhage, mass effect or midline shift. There is no abnormal enhancement. The anterior and posterior circulation is intact, without evidence of hemodynamically significant stenosis. Anterior and posterior communicating arteries are seen. No aneurysm is identified. Dural venous sinuses are patent with no persistent filling defects or areas of narrowing noted. There is attenuation of the right vertebral artery which could be congenital, atherosclerotic or vasculitis.. IMPRESSION: No acute intracranial process. No evidence of hemodynamically significant stenosis or aneurysm involving the [place]. The above CT scan was done with automated exposure control and the mA and kV was adjusted to obtain quality images according to patient size. Stenoses were measured using the NASCET method. THIS IS AN ELECTRONICALLY VERIFIED FINAL REPORT 04/11/2025 7:19 PM - Electronically signed by Cole Perez MD
[2025-04-11] MEDS: LIPITOR TAB 40 MG PO SCH (20:11)
[2025-04-12 04:49] LABS: BASOPHILS # (AUTO) 0.1 X10^3/uL (0.0-0.1); BASOPHILS % (AUTO) 0.6 % (0.2-1.0); EOSINOPHILS # (AUTO) 0.2 x10^3/uL (0.0-0.2); HEMATOCRIT 46.9 % (42.0-54.0); HEMOGLOBIN 16.4 g/dL (13.5-18.0); LYMPHOCYTES # (AUTO) 2.9 X10^3/uL (1.3-2.9); MEAN CORPUSCULAR HEMOGLOBIN 29.4 pg (27.0-34.0); MEAN CORPUSCULAR HGB CONC 35.1 g/dL (33.0-35.0); MEAN CORPUSCULAR VOLUME 83.8 fL (80.0-100.0); MEAN PLATELET VOLUME 8.2 fL (7.4-11.0); MONOCYTES # (AUTO) 0.9 x10^3/uL (0.3-0.8); MONOCYTES % (AUTO) 7.5 % (0.0-13.0); NEUTROPHILS # (AUTO) 7.4 x10^3/uL (2.2-4.8); NEUTROPHILS % (AUTO) 64.9 % (42.0-75.0); PLATELET COUNT 285 X10^3/uL (150.0-450.0); RED CELL DISTRIBUTION WIDTH 14.3 % (11.6-16.5); WHITE BLOOD COUNT 11.4 X10^3/uL (3.6-10.0)
[2025-04-12 04:56] LABS: ALANINE AMINOTRANSFERASE 60 Units/L (12-78); ALBUMIN 4.2 g/dL (3.4-5.0); ALKALINE PHOSPHATASE 83 Units/L (46-116); ASPARTATE AMINO TRANSFERASE 23 Units/L (15-37); BLOOD UREA NITROGEN 14 mg/dL (7-18); CALCIUM 9.3 mg/dL (8.5-10.1); CARBON DIOXIDE 26.3 mmol/L (21-32); CHLORIDE 102 mmol/L (98-107); COR NA(FOR HYPERGLY) 138 mmol/L (136-145); CREATININE 1.13 mg/dL (0.70-1.30); GLUCOSE 118 mg/dL (65-99); POTASSIUM 3.7 mmol/L (3.5-5.1); SODIUM 138 mmol/L (136-145); TOTAL PROTEIN 7.6 g/dL (6.4-8.2); eGFR NON BLACK RACES > 60 (>60)
[2025-04-12] MEDS ORDERED: CONSULT PHARMACY - POTASSIUM & MAGNESIUM XX SCH (07:00)
[2025-04-12] MEDS: ASPIRIN EC 81 MG PO SCH (09:29)
[2025-04-12] MEDS: K-DUR TAB 20 MEQ PO ONE (09:29)
--- NOTE | 2025-04-12 17:15 | MRI ---
EXAM: BRAIN W/O CON HISTORY: STROKE LIKE SYMPTOMS, NUMBNESS RT SIDE OF HEAD AND RIGHT ARM; COMPARISON: CT yesterday TECHNIQUE: Multiplanar multi-sequence MRI of the brain was obtained utilizing standard departmental protocol. Sagittal and axial T1 weighted images were obtained. Axial T2 and flair weighted images were performed as well. Axial diffusion weighted and ADC trace mapping was performed. FINDINGS: The midline structures appear unremarkable. The evaluation of the brain parenchyma demonstrates no abnormal signal characteristics to suggest intraparenchymal mass or hemorrhage. No extra-axial fluid collections are observed. The ventricular system appears symmetric and nondilated. The CP angle is normal in its appearance without brainstem mass or evidence for acoustic neuroma. The flow voids on both T1 and T2 weighted imaging appear unremarkable. Evaluation of the diffusion weighted imaging does demonstrate a small focus of restricted diffusion in the left thalamus most compatible with an acute/subacute infarcts. There are some minimal white matter signal changes probably due to early small-vessel ischemic changes.. Please note demyelinating disorder could also give similar symptoms but is felt less likely clinical correlation will be needed given the patient's age. The extracranial structures are unremarkable. IMPRESSION: Findings most likely due to a small acute/subacute infarct in the left thalamus with some very early small-vessel ischemic changes. THIS IS AN ELECTRONICALLY VERIFIED FINAL REPORT 04/12/2025 5:11 PM - Electronically signed by Javed Lewis MD
[2025-04-12] MEDS: VALIUM PO PRN (23:27)
[2025-04-12] MEDS: NORVASC TAB 10 MG PO SCH (23:28)
[2025-04-13 06:24] LABS: BASOPHILS # (AUTO) 0.1 X10^3/uL (0.0-0.1); BASOPHILS % (AUTO) 0.6 % (0.2-1.0); EOSINOPHILS # (AUTO) 0.2 x10^3/uL (0.0-0.2); EOSINOPHILS % (AUTO) 1.5 % (0.9-2.9); HEMATOCRIT 47.2 % (42.0-54.0); HEMOGLOBIN 16.1 g/dL (13.5-18.0); LYMPHOCYTES # (AUTO) 2.9 X10^3/uL (1.3-2.9); LYMPHOCYTES % (AUTO) 23.6 % (21.0-51.0); MEAN CORPUSCULAR HEMOGLOBIN 28.8 pg (27.0-34.0); MEAN CORPUSCULAR HGB CONC 34.2 g/dL (33.0-35.0); MEAN CORPUSCULAR VOLUME 84.1 fL (80.0-100.0); MEAN PLATELET VOLUME 8.1 fL (7.4-11.0); MONOCYTES # (AUTO) 0.9 x10^3/uL (0.3-0.8); MONOCYTES % (AUTO) 7.2 % (0.0-13.0); NEUTROPHILS # (AUTO) 8.1 x10^3/uL (2.2-4.8); NEUTROPHILS % (AUTO) 67.1 % (42.0-75.0); PLATELET COUNT 284 X10^3/uL (150.0-450.0); RED BLOOD COUNT 5.61 X10^6/uL (4.7-6.0); RED CELL DISTRIBUTION WIDTH 13.9 % (11.6-16.5); WHITE BLOOD COUNT 12.1 X10^3/uL (3.6-10.0)
[2025-04-13 06:36] LABS: ALANINE AMINOTRANSFERASE 76 Units/L (12-78); ALBUMIN 4.3 g/dL (3.4-5.0); ALKALINE PHOSPHATASE 83 Units/L (46-116); ASPARTATE AMINO TRANSFERASE 33 Units/L (15-37); BLOOD UREA NITROGEN 16 mg/dL (7-18); CALCIUM 9.5 mg/dL (8.5-10.1); CHLORIDE 103 mmol/L (98-107); GLUCOSE 94 mg/dL (65-99); POTASSIUM 4.1 mmol/L (3.5-5.1); SODIUM 140 mmol/L (136-145); TOTAL PROTEIN 7.9 g/dL (6.4-8.2); eGFR NON BLACK RACES > 60 (>60)
--- NOTE | 2025-04-13 08:43 | PCM.PROG ---
Progress Note Progress Note for Day of Date of Exam: 04/12/25 Subjective Subjective: Patient seen at bedside, no acute events overnight. He did have some worsening of the numbness late yesterday afternoon. CTA head and neck did not show any significant stenosis. Repeat brain CT was negative as per radiology. Teleneurology consult was done and neurology recommended MRI brain and to continue to monitor. Neurologist Dr. Fallon did review repeat brain CT imaging and was concerned that there is a new area of hypodensity in L thalamus concerning for acute lacunar infarct which was not present on initial CT. Radiology was contacted and notified about the concern and given Dr. Fallon's contact information to review imaging. Patient states he feels like his numbness on the right side is slightly better this morning. His blood pressure has been better controlled. He is is scheduled to have MRI and echo today. Labs/imaging reviewed: - WBC 11.4 hemoglobin 16 potassium 3.7 creatinine 1.13 - A1c 5.1% - Total cholesterol 244 LDL 157 - CTA head and neck and repeat Brain CT w/o contrast reviewed Plan: Follow MRI-brain results. Echo ordered. Continue telemetry, neurochecks. Continue aspirin and Plavix. Continue Lipitor. Discussed risk factors with patient. Monitor blood pressure. Continue lisinopril. Replace electrolytes as per protocol. Will check with radiology about CT reading from yesterday. PT/OT eval. Monitor a.m. labs and imaging. Past Medical Family Social History Allergies: Allergies No Known Allergies Allergy (Verified 04/10/25 06:45) Vital Signs and I&O's Vital Signs: Vital Signs Temperature 97.5 F Temperature 97.6 F Pulse Rate [Left Radial] 86 Pulse Rate [Left Radial] 77 Respiratory Rate 17 Respiratory Rate 18 Blood Pressure [Right Arm] 133/89 Blood Pressure [Right Arm] 128/84 O2 Sat by Pulse Oximetry 97 O2 Sat by Pulse Oximetry 97 Intake and Output: Intake & Output 04/09/25 04/10/25 04/11/25 04/12/25 23:59 23:59 23:59 23:59 Intake Total 280 / 280 700 / 700 295 / 295 Output Total 250 / 250 Balance 280 / 280 700 / 700 45 / 45 Physical Exam Oriented: Normal Eyes: Normal Nose: Normal Throat: Normal Respiratory: Normal Cardiovascular: Normal Auscultation: Bowel Sounds: Normal Palpation: Normal Tenderness: Normal Skin: Normal Musculoskeletal: Right, Arm, Foot and Sensory Deficit Psychiatric: Normal Mood Description: Calm Affect: Normal Speech Pattern: Clear and Appropriate Laboratory and Diagnostics 04/13/25 05:47 04/13/25 05:47 Labs: Laboratory WBC 11.4 X10^3/uL (3.6-10.0) H 04/12/25 04:20 RBC 5.60 X10^6/uL (4.7-6.0) 04/12/25 04:20 Hgb 16.4 g/dL (13.5-18.0) 04/12/25 04:20 Hct 46.9 % (42.0-54.0) 04/12/25 04:20 MCV 83.8 fL (80.0-100.0) 04/12/25 04:20 MCH 29.4 pg (27.0-34.0) 04/12/25 04:20 MCHC 35.1 g/dL (33.0-35.0) H 04/12/25 04:20 RDW 14.3 % (11.6-16.5) 04/12/25 04:20 Plt Count 285 X10^3/uL (150.0-450.0) 04/12/25 04:20 MPV 8.2 fL (7.4-11.0) 04/12/25 04:20 Neut % (Auto) 64.9 % (42.0-75.0) 04/12/25 04:20 Lymph % (Auto) 25.0 % (21.0-51.0) 04/12/25 04:20 Swain % (Auto) 7.5 % (0.0-13.0) 04/12/25 04:20 Eos % (Auto) 2.0 % (0.9-2.9) 04/12/25 04:20 Baso % (Auto) 0.6 % (0.2-1.0) 04/12/25 04:20 Neut # (Auto) 7.4 x10^3/uL (2.2-4.8) H 04/12/25 04:20 Lymph # (Auto) 2.9 X10^3/uL (1.3-2.9) 04/12/25 04:20 Swain # (Auto) 0.9 x10^3/uL (0.3-0.8) H 04/12/25 04:20 Eos # (Auto) 0.2 x10^3/uL (0.0-0.2) 04/12/25 04:20 Baso # (Auto) 0.1 X10^3/uL (0.0-0.1) 04/12/25 04:20 Absolute Nucleated RBC 0.0 /100WBC 04/12/25 04:20 PT 13.3 SECONDS (11.8-14.3) 04/11/25 05:34 INR Target Range - 04/11/25 05:34 INR 1.00 (0.8-1.3) 04/11/25 05:34 APTT 26.6 SECONDS (22.9-36.5) 04/11/25 05:34 PTT Comment - 04/11/25 05:34 Sodium 138 mmol/L (136-145) 04/12/25 04:20 Corrected Sodium 138 mmol/L (136-145) 04/12/25 04:20 Potassium 3.7 mmol/L (3.5-5.1) 04/12/25 04:20 Chloride 102 mmol/L (98-107) 04/12/25 04:20 Carbon Dioxide 26.3 mmol/L (21-32) 04/12/25 04:20 BUN 14 mg/dL (7-18) 04/12/25 04:20 Creatinine 1.13 mg/dL (0.70-1.30) 04/12/25 04:20 Est GFR (MDRD) Af Amer > 60 (>60) 04/12/25 04:20 Est GFR (MDRD) Non-Af > 60 (>60) 04/12/25 04:20 Glucose 118 mg/dL (65-99) H 04/12/25 04:20 Hemoglobin A1c 5.1 % 04/10/25 06:50 Calcium 9.3 mg/dL (8.5-10.1) 04/12/25 04:20 Corrected Calcium TNP 04/12/25 04:20 Magnesium 2.1 mg/dL (2.0-2.9) 04/11/25 05:34 Total Bilirubin 1.00 mg/dL (0.2-1.0) 04/12/25 04:20 AST 23 Units/L (15-37) 04/12/25 04:20 ALT 60 Units/L (12-78) 04/12/25 04:20 Alkaline Phosphatase 83 Units/L (46-116) 04/12/25 04:20 Creatine Kinase 146 Units/L (39-308) 04/10/25 18:53 Troponin I High Sens 7.1 ng/L (4.0-60.0) 04/10/25 18:53 Total Protein 7.6 g/dL (6.4-8.2) 04/12/25 04:20 Albumin 4.2 g/dL (3.4-5.0) 04/12/25 04:20 Globulin 3.4 g/dL (2.5-4.5) 04/12/25 04:20 Albumin/Globulin Ratio 1.2 Ratio (1.1-2.1) 04/12/25 04:20 Triglycerides 89 mg/dL (0-150) 04/11/25 05:34 Cholesterol 244 mg/dL (0-200) H 04/11/25 05:34 LDL Cholesterol, Calc 157 mg/dL (0-100) H 04/11/25 05:34 HDL Cholesterol 69 mg/dL (40-60) H 04/11/25 05:34 Cholesterol/HDL Ratio 3.5 (0.0-5.0) 04/11/25 05:34 Plan (1) Right arm numbness: Status: Acute (2) Right facial numbness: Status: Acute (3) Malignant essential hypertension: Status: Acute (4) Alcohol use: Status: Chronic (5) HLD (hyperlipidemia): Status: Chronic Qualifiers: Hyperlipidemia type: mixed hyperlipidemia Qualified Code(s): E78.2 - Mixed hyperlipidemia
[2025-04-13] MEDS: NexIUM PO SCH (10:12)
[2025-04-13 11:41] VITALS: BP 132/76; PULSE 86; RESP 20; TEMP 98.4; O2SAT 97
--- NOTE | 2025-04-19 10:14 | W.DIS.FURT ---
Summary of Discharge Discharge Summary of Date Date of Exam: 04/13/25 Admission Date Date of Admission: 04/10/25 Admission Diagnosis Patient Problems (Updated 04/13/25 @ 14:15 by Darlene Yu MD) Right arm numbness (Acute) R20.0 Right facial numbness (Acute) R20.0 Malignant essential hypertension (Acute) I10 Hospital Course: Mr. Christopher is a 44-year-old male with a past medical history of hypertension, alcohol use presented with right-sided facial numbness and tingling along with right arm and right foot numbness. He states he noticed his symptoms last night which progressively got worse so he decided to come to the ER. Initial workup included a CT brain which was negative, labs were within range. Patient's blood pressure on admission was 190/110. He was given clonidine and hydralazine. Chest x-ray was normal. Patient did not have any motor deficit on the right side but was feeling numbness and tingling. Telemetry neuroconsult was done and they recommended observation along with MRI brain. Patient was given aspirin and Plavix. He was admitted for further evaluation. He does not take any medications for high blood pressure. He does not check his blood pressure. Denies having history of diabetes or CAD. He does drink at least 6 beers daily for years. Denies any slurred speech, trouble swallowing or any limitation of range of motion. Denies chest pain or shortness of breath. He was admitted to [facility] with telemetry and neurochecks. His labs were monitored daily and electrolytes replace as needed. He was started on lisinopril 10 mg daily and hydralazine IV as needed for blood pressure control. His A1c was within range, lipid panel was abnormal. His cardiac enzymes were all negative. MRI brain was ordered for Saturday. CTA head and neck were negative. Patient reported worsening numbness in his right arm and right leg. Repeat CT brain without contrast was initially read as no acute changes. Teleneurology was consulted again and reviewed imaging including repeat CT brain. Neurology did notice lacunar infarct in the left thalamus region. Recommendations included to continue aspirin, Plavix and Lipitor. Follow-up MRI Saturday morning. Patient's MRI brain did show small left thalamus lacunar infarct. Echo was also done which was normal. He was also started on amlodipine for blood pressure control. He reported slight improvement in right arm numbness. Physical therapy was consulted and patient was able to ambulate without any assistance. He was stable to be discharged home. He will follow-up with primary care as scheduled. Vital Signs: Vital Signs (72 hours) 04/10/25 16:00 04/10/25 17:05 04/10/25 19:00 Temperature 97.6 F Pulse Rate [Left Radial] 69 Respiratory Rate 19 Blood Pressure [Right Arm] 142/90 O2 Sat by Pulse Oximetry 98 Oxygen Delivery Method Room Air Room Air Room Air 04/10/25 20:00 04/10/25 20:55 04/10/25 23:43 Temperature 98.4 F 97.6 F Pulse Rate [Left Radial] 74 81 Respiratory Rate 18 17 Blood Pressure [Right Arm] 142/104 149/88 131/81 O2 Sat by Pulse Oximetry 97 97 Oxygen Delivery Method Room Air Room Air 04/11/25 03:53 04/11/25 07:00 04/11/25 07:47 Temperature 97.8 F 97.8 F Pulse Rate [Left Radial] 78 84 Respiratory Rate 17 20 Blood Pressure [Right Arm] 138/89 138/86 O2 Sat by Pulse Oximetry 97 97 Oxygen Delivery Method Room Air Room Air Room Air 04/11/25 09:00 04/11/25 12:00 04/11/25 15:30 Temperature 97.6 F 98.4 F Pulse Rate [Left Radial] 74 83 Respiratory Rate 20 20 Blood Pressure [Right Arm] 153/85 173/105 O2 Sat by Pulse Oximetry 97 97 Oxygen Delivery Method Room Air Room Air Room Air 04/11/25 15:30 04/11/25 15:40 04/11/25 19:00 Temperature Pulse Rate [Left Radial] Respiratory Rate Blood Pressure [Right Arm] 182/101 160/79 O2 Sat by Pulse Oximetry Oxygen Delivery Method Room Air 04/11/25 20:00 04/11/25 20:40 04/11/25 21:21 Temperature 97.4 F L Pulse Rate [Left Radial] 81 Respiratory Rate 20 Blood Pressure [Right Arm] 152/96 138/88 O2 Sat by Pulse Oximetry 97 Oxygen Delivery Method Room Air Room Air 04/12/25 00:00 04/12/25 03:50 04/12/25 07:00 Temperature 97.4 F L 97.6 F Pulse Rate [Left Radial] 80 77 Respiratory Rate 18 18 Blood Pressure [Right Arm] 139/88 128/84 O2 Sat by Pulse Oximetry 96 97 Oxygen Delivery Method Room Air Room Air Room Air 04/12/25 08:00 04/12/25 08:15 04/12/25 12:00 Temperature 97.5 F L 98.2 F Pulse Rate [Left Radial] 86 86 Respiratory Rate 17 18 Blood Pressure [Right Arm] 133/89 150/89 O2 Sat by Pulse Oximetry 97 98 Oxygen Delivery Method Room Air Room Air Room Air 04/12/25 16:00 04/12/25 17:00 04/12/25 19:00 Temperature 98.3 F Pulse Rate [Left Radial] 96 H Respiratory Rate 16 Blood Pressure [Right Arm] 164/98 158/80 O2 Sat by Pulse Oximetry 97 Oxygen Delivery Method Room Air Room Air 04/12/25 20:00 04/12/25 21:15 04/12/25 22:00 Temperature 98.1 F Pulse Rate [Left Radial] 97 H 97 H Respiratory Rate 19 Blood Pressure [Right Arm] 174/72 185/100 O2 Sat by Pulse Oximetry 97 Oxygen Delivery Method Room Air Room Air 04/12/25 22:10 04/12/25 22:15 04/12/25 22:30 Temperature Pulse Rate [Left Radial] 97 H 92 H 92 H Respiratory Rate Blood Pressure [Right Arm] 175/99 145/82 155/88 O2 Sat by Pulse Oximetry Oxygen Delivery Method 04/12/25 22:40 04/12/25 22:45 04/12/25 22:50 Temperature Pulse Rate [Left Radial] 92 H 91 H 92 H Respiratory Rate Blood Pressure [Right Arm] 179/99 151/87 153/91 O2 Sat by Pulse Oximetry Oxygen Delivery Method 04/12/25 23:00 04/13/25 00:00 04/13/25 01:30 Temperature 98.2 F Pulse Rate [Left Radial] 96 H 86 Respiratory Rate 18 Blood Pressure [Right Arm] 168/96 167/97 118/74 O2 Sat by Pulse Oximetry 95 Oxygen Delivery Method 04/13/25 04:00 04/13/25 07:00 04/13/25 07:45 Temperature 98.1 F 98.2 F Pulse Rate [Left Radial] 82 92 H Respiratory Rate 18 19 Blood Pressure [Right Arm] 121/66 122/76 O2 Sat by Pulse Oximetry 96 96 Oxygen Delivery Method Room Air 04/13/25 08:46 04/13/25 11:40 Temperature 98.4 F Pulse Rate [Left Radial] 86 Respiratory Rate 20 Blood Pressure [Right Arm] 132/76 O2 Sat by Pulse Oximetry 97 Oxygen Delivery Method Room Air Labs: Laboratory Last Values WBC 12.1 X10^3/uL (3.6-10.0) H 04/13/25 05:47 RBC 5.61 X10^6/uL (4.7-6.0) 04/13/25 05:47 Hgb 16.1 g/dL (13.5-18.0) 04/13/25 05:47 Hct 47.2 % (42.0-54.0) 04/13/25 05:47 MCV 84.1 fL (80.0-100.0) 04/13/25 05:47 MCH 28.8 pg (27.0-34.0) 04/13/25 05:47 MCHC 34.2 g/dL (33.0-35.0) 04/13/25 05:47 RDW 13.9 % (11.6-16.5) 04/13/25 05:47 Plt Count 284 X10^3/uL (150.0-450.0) 04/13/25 05:47 MPV 8.1 fL (7.4-11.0) 04/13/25 05:47 Neut % (Auto) 67.1 % (42.0-75.0) 04/13/25 05:47 Lymph % (Auto) 23.6 % (21.0-51.0) 04/13/25 05:47 Wright % (Auto) 7.2 % (0.0-13.0) 04/13/25 05:47 Eos % (Auto) 1.5 % (0.9-2.9) 04/13/25 05:47 Baso % (Auto) 0.6 % (0.2-1.0) 04/13/25 05:47 Neut # (Auto) 8.1 x10^3/uL (2.2-4.8) H 04/13/25 05:47 Lymph # (Auto) 2.9 X10^3/uL (1.3-2.9) 04/13/25 05:47 Wright # (Auto) 0.9 x10^3/uL (0.3-0.8) H 04/13/25 05:47 Eos # (Auto) 0.2 x10^3/uL (0.0-0.2) 04/13/25 05:47 Baso # (Auto) 0.1 X10^3/uL (0.0-0.1) 04/13/25 05:47 Absolute Nucleated RBC 0.1 /100WBC 04/13/25 05:47 PT 13.3 SECONDS (11.8-14.3) 04/11/25 05:34 INR Target Range - 04/11/25 05:34 INR 1.00 (0.8-1.3) 04/11/25 05:34 APTT 26.6 SECONDS (22.9-36.5) 04/11/25 05:34 PTT Comment - 04/11/25 05:34 Sodium 140 mmol/L (136-145) 04/13/25 05:47 Corrected Sodium TNP 04/13/25 05:47 Potassium 4.1 mmol/L (3.5-5.1) 04/13/25 05:47 Chloride 103 mmol/L (98-107) 04/13/25 05:47 Carbon Dioxide 25.0 mmol/L (21-32) 04/13/25 05:47 BUN 16 mg/dL (7-18) 04/13/25 05:47 Creatinine 1.10 mg/dL (0.70-1.30) 04/13/25 05:47 Est GFR (MDRD) Af Amer > 60 (>60) 04/13/25 05:47 Est GFR (MDRD) Non-Af > 60 (>60) 04/13/25 05:47 Glucose 94 mg/dL (65-99) 04/13/25 05:47 Hemoglobin A1c 5.1 % 04/10/25 06:50 Calcium 9.5 mg/dL (8.5-10.1) 04/13/25 05:47 Corrected Calcium TNP 04/13/25 05:47 Magnesium 2.1 mg/dL (2.0-2.9) 04/11/25 05:34 Total Bilirubin 1.00 mg/dL (0.2-1.0) 04/13/25 05:47 AST 33 Units/L (15-37) 04/13/25 05:47 ALT 76 Units/L (12-78) 04/13/25 05:47 Alkaline Phosphatase 83 Units/L (46-116) 04/13/25 05:47 Creatine Kinase 146 Units/L (39-308) 04/10/25 18:53 Troponin I High Sens 7.1 ng/L (4.0-60.0) 04/10/25 18:53 Total Protein 7.9 g/dL (6.4-8.2) 04/13/25 05:47 Albumin 4.3 g/dL (3.4-5.0) 04/13/25 05:47 Globulin 3.6 g/dL (2.5-4.5) 04/13/25 05:47 Albumin/Globulin Ratio 1.2 Ratio (1.1-2.1) 04/13/25 05:47 Triglycerides 89 mg/dL (0-150) 04/11/25 05:34 Cholesterol 244 mg/dL (0-200) H 04/11/25 05:34 LDL Cholesterol, Calc 157 mg/dL (0-100) H 04/11/25 05:34 HDL Cholesterol 69 mg/dL (40-60) H 04/11/25 05:34 Cholesterol/HDL Ratio 3.5 (0.0-5.0) 04/11/25 05:34 Reason For Visit: SENSORY STROKE, HYPERTENSIVE EMERGENCY Discharge Diagnosis All Active Problems (Updated 04/13/25 @ 14:15 by Darlene Yu MD) GERD (gastroesophageal reflux disease) (Acute) Lacunar infarct, acute (Acute) HLD (hyperlipidemia) (Chronic) Alcohol use (Chronic) Right arm numbness (Acute) Right facial numbness (Acute) Malignant essential hypertension (Acute) Plan of Treatment: Continue with present treatment and follow up plan. Pt is to keep follow up appointment as instructed and take medications as ordered. Discharge Medications Discharge Medications: No Known Allergies Allergy (Verified 04/10/25 06:45) New Prescriptions amlodipine 10 mg tablet 10 mg PO DAILY 30 days #30 tabs 04/13/25 [Rx] aspirin 81 mg tablet,delayed release 81 mg PO DAILY #30 tabs 04/13/25 [Rx] atorvastatin 40 mg tablet 40 mg PO HS 30 days #30 tabs 04/13/25 [Rx] clopidogrel 75 mg tablet 75 mg PO DAILY 21 days #21 tabs 04/13/25 [Rx] lisinopril 10 mg tablet 10 mg PO DAILY 30 days #30 tabs 04/13/25 [Rx] pantoprazole 40 mg tablet,delayed release 40 mg PO QDAY 30 days #30 tabs 04/13/25 [Rx] Discharge Disposition Discharge Disposition: home Discharge Condition: stable Discharge Plan Discharge Plan Hospital Course: Mr. Christopher is a 44-year-old male with a past medical history of hypertension, alcohol use presented with right-sided facial numbness and tingling along with right arm and right foot numbness. He states he noticed his symptoms last night which progressively got worse so he decided to come to the ER. Initial workup included a CT brain which was negative, labs were within range. Patient's blood pressure on admission was 190/110. He was given clonidine and hydralazine. Chest x-ray was normal. Patient did not have any motor deficit on the right side but was feeling numbness and tingling. Telemetry neuroconsult was done and they recommended observation along with MRI brain. Patient was given aspirin and Plavix. He was admitted for further evaluation. He does not take any medications for high blood pressure. He does not check his blood pressure. Denies having history of diabetes or CAD. He does drink at least 6 beers daily for years. Denies any slurred speech, trouble swallowing or any limitation of range of motion. Denies chest pain or shortness of breath. He was admitted to [facility] with telemetry and neurochecks. His labs were monitored daily and electrolytes replace as needed. He was started on lisinopril 10 mg daily and hydralazine IV as needed for blood pressure control. His A1c was within range, lipid panel was abnormal. His cardiac enzymes were all negative. MRI brain was ordered for Saturday. CTA head and neck were negative. Patient reported worsening numbness in his right arm and right leg. Repeat CT brain without contrast was initially read as no acute changes. Teleneurology was consulted again and reviewed imaging including repeat CT brain. Neurology did notice lacunar infarct in the left thalamus region. Recommendations included to continue aspirin, Plavix and Lipitor. Follow-up MRI Saturday morning. Patient's MRI brain did show small left thalamus lacunar infarct. Echo was also done which was normal. He was also started on amlodipine for blood pressure control. He reported slight improvement in right arm numbness. Physical therapy was consulted and patient was able to ambulate without any assistance. He was stable to be discharged home. He will follow-up with primary care as scheduled. Patient Disposition: 01 HOME, SELF-CARE Condition: Stable Health Concerns: Post Hospitalization: new medications and changes needed to prevent readmission or further decline. Pt educated and given instructions on all concerns. Care Plan Goals: Problem: Pain/Alteration in Comfort Goal: Improve/ Resolve Pain; Achieve Pain Tolerance Instructions: Take pain medications as prescribed. Contact your primary care provider if your pain is unrelieved or worsens. Follow up with primary care provider as directed. Plan of Treatment: Continue with present treatment and follow up plan. Pt is to keep follow up appointment as instructed and take medications as ordered. Prescription drug monitoring program results: PDMP reviewed and no concerns identified Prescriptions: New aspirin 81 mg Tablet,Delayed Release (Dr/Ec) 81 mg PO DAILY Qty: 30 0RF atorvastatin 40 mg Tablet 40 mg PO HS 30 Days Qty: 30 0RF clopidogrel 75 mg Tablet 75 mg PO DAILY 21 Days Qty: 21 0RF amlodipine 10 mg Tablet 10 mg PO DAILY 30 Days Qty: 30 0RF lisinopril 10 mg Tablet 10 mg PO DAILY 30 Days Qty: 30 0RF pantoprazole 40 mg tablet,delayed release (DR/EC) 40 mg PO QDAY 30 Days Qty: 30 0RF Follow ups/Referrals Follow ups/Referrals: [facility] [Other] - 04/16/25 9:00 am Instructions Instructions: Stroke Prevention, How to Take Your Blood Pressure, [id number], Eating Plan After Stroke, Pain After a Stroke, Substance Use Disorder, Hypertension, Adult, [id number], Recovering From Addiction, Managing Your Hypertension, Hypertension Activity Restrictions/Additional Instructions: Please take aspirin and clopidogrel both for 21 days and then only aspirin. Stop Nexium, switch to Protonix due to interaction with clopidogrel Monitor blood pressure daily Follow-up with primary care provider as scheduled Stand Alone Forms: Excuse From Work or School, Find Help Web Site, Post Hospital Follow Up Care Print Language: CONGOLESE
== END 2025-04-13 14:50 | disposition home or self-care (01) | DRG 66 ==
LOC: MED/SURG 06:19 → ER 06:19 → OBSVTOIN 09:34 → MED/SURG 09:53
PROVIDERS: ADMIT Internal Medicine; ATTEND Internal Medicine
DX: F10.90 Alcohol use, unspecified, uncomplicated; E78.2 Mixed hyperlipidemia; R26.89 Other abnormalities of gait and mobility; I16.0 Hypertensive urgency; K21.9 Gastro-esophageal reflux disease without esophagitis; I10 Essential (primary) hypertension; R20.0 Anesthesia of skin; I63.81 Other cerebral infarction due to occlusion or stenosis of small artery